=== PATIENT | male | born 2000 | race Caucasian/White ===

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

== ENCOUNTER 2025-04-07 13:15 | Emergency (ER) | payer OTHER, SELFPAY ==
--- OUTSIDE RECORDS SUMMARY | 2023-06-19 13:14 | XMS_ITS | Encounter Summary ---
Author Organization [employer] Address [address] [place] [address] Care Team Providers Care Technical Producer Name Role Phone Unavailable Primary Care Provider Unavailabl e Reason for Visit * Eval and Treat (Routine) - Closed Specialty Diagnoses / Procedures Referred By Herve christiansen Referred To Contact Sports Medicine Diagnoses S/P right knee arthroscopy Rupture of anterior cruciate ligament of right knee, initial encounter Tear of medial meniscus of right knee, current, unspecified tear type, initial encounter Jon Aldana MD [address] [place] [address] Phone: tel: fax: [facility] [address] [address] Phone: tel: fax: Referral ID Status Reason Start Date Expiration Date Visits Requested Visits Authorized [id number] Closed Performing Department to Schedule 06/05/2023 06/04/2024 14 14 Encounter Details Date Type Department Care Team (Late st Contact Info) Description 06/19/2023 12:14 PM [facility] Hospital Encounter [facility] [place], [facility] [address] [address] Social History Tobacco Use Types Packs/Day Years Used Date Smoking Tobacco: Never Smokeless Tobacco: Never Alcohol Use Standard Drinks/Week Comments Yes 0 (1 standard drink = 0.6 oz pur e alcohol) occ. 2 or 3 a month Feeling Safe Answer Date Recorded Are you in a relationship wi th someone who hurts you emotionally and/or physically? 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 Gender Identity Not on file Sexual Orientation Not on file documented as of this encounter Miscellaneous Notes * Therapy Evaluation - Jonathan Garcia, Physical Therapist - 06/19/2023 1:00 PM [facility] SP[facility] MEDICINE [facility] POST - OPERATIVE EVALUATION Patient: Jared Gomez : 2000 Insurer: Payor: [facility] / Plan: [facility] CHOICE [id number] / Product Type: HMO / DATE: 06/19/2023 Referring Physician: Jon Aldana, * VISIT#: authorized visits: 19 Diagnosis: Right knee surgery Date of Surgery: 06/09/23 Procedure(s): Right arthroscopic-assisted anterior cruciate ligament reconstruction with bone- patellar tendon-bone autograft. Contracted School: NA Tier: 3 ; Activity: Weightlifting Start Time: 1300 PATIENT INTENDED TREATMENT OUTCOME / GOALS Patient's stated specific intended outcome(s) for therapy is to return to athletic training education program, weightlifting, and recreational basketball / running without restriction. Short Term: Function related goals: Improved locomotion (33)- Walk without assistance Physiologic Related Goals: Improved swelling (74)- improved circumference measures increased local/isolated range of motion Improved tissue tolerance to stress (78)- Improved local ROM Subjective Related Goals: improved ability to go to school (94)- Improved sustainability of school related skills for the duration of the school day SUBJECTIVE HISTORY: Jared Gomez is a 22 y.o. male referred for evaluation & treatment. 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 Enjoys weightlifting 3 times a week and gets his cardio from basketball and running. SYMPTOM STORY / PATIENT COMPLAINTS: Prior to Surgery: Patient was playing flag football in March 2023, had a noncontact injury to his knee. He felt apop in his knee, and felt something shift, had swelling. MRI confirmed ACL tear. He elected for theabove procedures. Since Surgery: Patient stated they feel good. Patient states they did not take prescribed opiate medication and instead was taking tylenol instead. Patient states their knee feels tight. They are using one crutch around their apartment and two partial weightbearing for longer distances. Patient states feeling soreness on anterior aspect of their right ankle when sitting in knee extension with plantarflexion forlong periods of time. Patient states they have been using lacrosse ball to help with pain in hamstrings and lateral hip. DESCRIPTION OF PAIN/SYMPTOMS: Pain Location: lateral incision sites, hamstrings and lateral aspect of hip Pain rating: current 1/10 best 1/10 worst 7/10 Pain Increases with: full weight bearing Pain Decreases with: sitting full extension with elevation; BARAK wrap compression with ice compress PREVIOUS MEDICAL HISTORY of ORTHOPEDIC INJURY: Left shoulder labrum repair 2016; left and right lateral ankle sprains June 2022 last time; ADDITIONAL RELEVANT MEDICAL HISTORY: Past Medical History: Diagnosis Date Motion sickness Past Surgical History: Procedure Laterality Date HX EXCISION / REPAIR HYDROCELE PEDIATRIC HX SHOULDER ARTHROSCOPY Left 2016 left labral repair HX WISDOM TEETH EXTRACTION IN ARTHRS AIDED ANT CRUCIATE LIGM RPR/AGMNTJ/RCNSTJ Right 06/09/2023 KNEE ANTERIOR CRUCIATE LIGAMENT REPAIR ARTHROSCOPIC performed by Jon Aldana MD at [facility] OR OBSERVATION Supportive Status: ambulates partial weight bearing with axillary crutches Observed: Skin Appearance: surgical incisions clean, closed & healing well without sign of infection Bleeding/drainage: Minimal Bleeding Breathing Pattern: unremarkable Post-operative Affect: Unremarkable OBJECTIVE Tissue Quality Edema/effusion: mild to moderate Location: Knee Circumference: 5cm above superior patellar border: Left 46cm Right 45.5cm Midpatella: Left 38cm Right 41.5cm 10cm below inferior patellar border: Left 39cm Right 40.1cm Muscle Atrophy Location: 21 cm proximal to lateral joint line Left: 55cm Right: 54 Palpation: Pain/tenderness is noted over the following structures: hamstrings, lateral superior incisions Tissue mobility restrictions noted in the following structures: hamstrings, vastus lateralis, tensor fascia latae, gluteus medius Range of Motion Testing: ROM TESTING: Knee Posture LEFT (Active/Passive ROM) RIGHT (Active/Passive ROM) Extension Supine 6?? / 10?? -4?? / 0?? pain Flexion Supine 135?? / 145?? 54?? / 54?? guarding Accessory Joint Motion: Patellar Mobility; Superior- LEFT: excellent RIGHT: excellent Patellar Mobility; Inferior- LEFT: excellent RIGHT: excellent Patellar Mobility; Medial- LEFT: excellent RIGHT: excellent Patellar Mobility; Lateral- LEFT: excellent RIGHT: excellent Strength Testing: Quad contraction is absent Independent ability to perform a straight leg raise: absent Neurological Assessment None were performed at this time. Vascular Assessment None were performed at this time. Breathing Assessment: Breath Hold Test: 41 Seconds PLAN of CARE ASSESSMENT Patient is 10 days post Right knee surgery. Our Assessment identified the following clinical problems following the surgical procedure: Nociception resulting from surgical trauma Swelling> secondary to a surgical procedure resulting in bleeding/fluid within the joint (Effusion) and into the extracellular spaces. Abnormal Tissue Health> Increased Local Swelling/Metabolites Decreased Tissue Mobility Altered Joint Mechanics Limited ROM secondary to Nociceptive input Effusion Tissue Sliding/Gliding Restrictions (vastus lateralis, tensor fascia latae, hamstrings, gluteus medius) Limited Strength Strength limitation secondary to Limited ROM, Missing Shape Competency, Isolated Muscle Weakness, and Muscular Atrophy Based upon the totality of the patients presentation, the Clinical Problem with the highest priority -at this time- is: Swelling> secondary to a surgical procedure resulting in bleeding/fluid within the joint (Effusion) and into the extracellular spaces. PLAN Based upon the patient's presentation today, combined with our objective findings and the referringphysicians recommendation, we are recommending that the patient receive formal, skilled therapy/care at the following interval: 2x/ week for 20-24 weeks Additionally, we discussed the timeframe in which the patient can expect to transition into Phase 2of formal therapy. At this time, we should expect meet all the established requirements and make this transition at roughly the 8 week timeframe. We also are providing the patient with a self-care program with the goal of establishing independent care, that includes the following: Self- administered daily soft tissue work with a foam roll, lacrosse ball, or other implement available to the patient. Individualized breathing protocols which include the most ideal times during the day to perform Activity Status: At this time, based upon the patients clinical presentation, our recommendation is that the patientshould NOT be released to return back to their chosen activity at this time. GOALS For a full list of goals, see the accompanying Treatment Planning Document Topics discussed with patient: Evaluation findings, assessment, recommendations, patient / clinical goals and appropriate expectations. The patient's questions were answered to their verbally indicated satisfaction. At the conclusion the patient stated that they were satisfied with the evaluation & the recommended plan of care. EVALUATION COMPLEXITY PERSONAL FACTORS: none COMORBIDITIES: none Complexity LOW MODERATE HIGH Personal factors/comorbidities [x] 0 [] 1-2 [] 3 Examination of body systems(s) [x] 1-2 [] 3+ [] 4+ Clinical presentation [x] stable [] evolving [] unstable Clinical Decision Making [x] uncomplicated [] Moderate complexity [] Unpredictable presentation Low Evaluation, Duration: 30 minutes, performed by: Jonathan Garcia DPT, ATC TREATMENT TREATMENT ACTIVITIES: Today's Clinical Priority: Establish Care Treatment Start Time: 1330 MANUAL THERAPY Clinician: Jonathan Garcia DPT ATC 20 minutes CLINICAL REASONING: Pain, Restricted Motion, and Lymphatics Lymphatic Drainage: right lower quadrant, right lower extremity Soft Tissue mobilization: popliteus, vastus lateralis Joint Mobilizations: posterior tibial glides THERAPEUTIC EXERCISE Clinician: Jonathan Garcia DPT, ATC 10 minutes CLINICAL REASONING: Restore Strength* Improved Fluid Dynamic Intent: supine: assisted active straight leg raise, assisted active knee extension, assisted active knee flexion ; supported heel raises Total Treatment Time: 30 minutes POST TREATMENT NOTES R RESOURCE AGENT * Treatment Plan - Jonathan Garcia, Physical Therapist - 06/19/2023 1:00 PM [facility]ST [facility]IC[facility] Post -Op Therapy Planning Document Patient: Jared Gomez : 2000 Insurer: Payor: [facility] / Plan: [facility] CHOICE [id number] / Product Type: HMO / Referring Physician: Jon Aldana, * EVAL DATE: 06/19/2023 Diagnosis: Right knee surgery Date of Surgery: 06/09/23 Procedure(s): Right arthroscopic-assisted anterior cruciate ligament reconstruction with bone- patellar tendon-bone autograft. Therapy Transition Plan Based upon the procedure performed, and the information gathered during the evaluation process, therehab team and patient will target a transition into the next stage of therapy (second phase of formal therapy) at 8-10 weeks (08/04 - 08/18/2023) as well as a target for their full return to activity at 20-24 weeks (10/2023). GOALS The following goals were discussed and agreed upon with the patient: Short Term Goals - to be accomplished by the next progress note (3 weeks or visit #6) Function related goals: Improved locomotion (33)- Walk without assistance Physiologic Related Goals: Improved swelling (74)- improved circumference measures increased local/isolated range of motion Improved tissue tolerance to stress (78)- Improved local ROM Subjective Related Goals: improved ability to go to school (94)- Improved sustainability of school related skills for the duration of the school day Intermediate Goals - to be accomplished by the transition into Phase 2 Prone Active Knee flexion > 115 Prone Passive Knee Flexion > 120: Supine (knee to chest) Painfree overpressure knee flexion: Active Knee Extension to 0: Passive Knee Extension equal bilaterally, soft end feel: NO Swelling that limits ROM Negative Ballotment Test Shapes of Movement Standing Set up C1 Back Rack Set up C1 Bottom of Lunge Set up each side C1 Crouching Leyva Set up each side C1 FWB with no visible limp with gait Meets appropriate strength minimums for situation. Ultimate Goals - to be accomplished by their anticipated discharge date (10/27/2023) Function related goals: Improved locomotion (33)- Walk without a limp Jump Run Improved ability to pick items up (34)- glucose and syrup weigher objects for sport Physiologic Related Goals: Improved ability to generate force (86)- Improved force production metrics (leg press, dynamometer, etc.) Subjective Related Goals: Patient's stated specific intended outcome(s) for therapy is to return to athletic training education program, weightlifting, and recreational basketball / running without restriction. Improved ability to run and jump, weight lift for an extended period of time without a return of symptoms. 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 The following obstacle to rehab were identified: work related issues/ability to get time off and school related issues related to scheduling Each of the above identified obstacles will be addressed as needed. R RESOURCE AGENT documented in this encounter Plan of Treatment Scheduled Referrals Name Type Priority Associated Diagnoses Orde r Schedule AMB REFERRAL TO PHYSICAL THERAPY Outpatient Referral Routine S/P right knee arthroscopy Rupture of anterior cruciate ligament of right knee, initial encounter Tear of medial meniscus of right knee, current, unspecified tear type, initial encounter Ordered: 06/05/2023 documented as of this encounter Visit Diagnoses Not on filedocumented in this encounter
--- OUTSIDE RECORDS SUMMARY | 2023-06-21 14:00 | XMS_ITS | Encounter Summary ---
Author Organization [employer] Address [address] [place] [address] Care Team Providers Care Rebeamer Name Role Phone Unavailable Primary Care Provider [...] initial encounter Jon Aldana MD [address] [place] [address] Phone: tel: fax: [facility] [address] [address] Phone: tel: fax: Referral ID Status Reason Start Date Expiration Date Visits Requested Visits Authorized [id number] Closed Performing Department to Schedule 06/05/2023 06/04/2024 14 14 Encounter Details Date Type Department Care Team (Late st Contact Info) Description 06/21/2023 1:00 PM [facility] Hospital Encounter [facility] [address] [address] Social History Tobacco Use Types [...] on file 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 Gender Identity Not on file Sexual Orientation Not on file documented as of this encounter Miscellaneous Notes * Therapy Treatment - Jonathan Garcia, Physical Therapist - 06/21/2023 1:00 PM CST [facility] SP[facility]TS MEDICINE [facility] Daily Treatment Record Patient: Jared Gomez : 2000 Insurer: Payor: [facility] / Plan: [facility] CHOICE [id number] / Product Type: HMO / Referring Physician: Jon Aldana, * DATE: 06/21/2023 VISIT#: 2 / Remaining authorized visits: 18 Diagnosis: Right knee surgery Date of Surgery: 06/09/23 Procedure(s): Right arthroscopic-assisted anterior cruciate ligament reconstruction with bone- patellar tendon-bone autograft. Contracted School: NA Tier: 3 ; Activity: Weightlifting PATIENT INTENDED TREATMENT OUTCOME / GOALS Patient's [...] the duration of the school day SUBJECTIVE Treatment Start Time: 100 Patient presents reporting he isn't having any pain at rest. He has been walking around his apartment without his crutches. Symptom Description: -- OBJECTIVE SHAPES OF MOVEMENT PROFILE: deferred secondary to: Full Shapes Profile in a previous visit Edema/Effusion: moderate Location: right knee Circumference: 5cm above superior patellar border: Left 46cm Right 46.2cm Midpatella: Left 38cm Right 42.9cm 10cm below inferior patellar border: Left 39cm Right 41cm 21cm above lateral joint line: Left 39cm Right 54cm ROM TESTING: Knee Posture LEFT (Active/Passive ROM) RIGHT (Active/Passive ROM) Extension Supine 6?? / 10?? -5?? / 1?? pain Palpation: Pain/tenderness is noted over the following structures: peroneals, poplitius Tissue mobility restrictions noted in the following structures: distal quad into lower leg Scar tissue mobility restrictions noted in the following areas: distal patellar tendon scar STRENGTH TESTING: Quad contraction is present, but very weak TREATMENT INTERVENTIONS I: Based on today's clinical presentation... Today's Clinical Priority: Improve scar tissue Test/Retest: passive knee extension MANUAL THERAPY Clinician: Ramsey Wilburn 25 minutes CLINICAL REASONING: Restricted Motion and Lymphatics Lymphatic Drainage: right lower leg Incision/scar mobilization: all incisions Dermal/Subcutaneous mobilization: lower leg Soft Tissue mobilization: popliteus Test/Retest - Improved ROM and Decreased Pain THERAPEUTIC EXERCISE Clinician: Ramsey Wilburn 5 minutes CLINICAL REASONING: Restore Range of Motion Improved Fluid Dynamic Intent: inverted supine + band assisted knee extension + straight leg raise Patient Handoff Information: The Clinical Priority at the time of handoff: Active knee extension Muscle pumping for swelling Restriction Reminder: None Test/Retest: Active knee extension Beginning Neurodevelopmental Posture/Pattern: Side lying Shape/Strategy Target: Standing: Static and Dynamic Next Appointment Confirmed: Confirmed TREATMENT INTERVENTIONS II NEURO RE-EDUCATION Clinician: Jonathan Garcia DPT, ATC 30 minutes CLINICAL REASONING: Restore Balance*, Restore Coordination*, and Restore Kinesthetic Sense Asymmetrical Supine: sidelying: band assisted active knee Symmetrical, Supported Sitting: Supported V-sitting: band assisted active knee extension, active knee extension + kettlebell heart beats Symmetrical Sitting: Sitting 90/90: active knee flexion <> extension Symmetrical stance: active knee extension, posterior weight shifting POST TREATMENT NOTES Test/Retest - supine active knee extension 0 degrees Total Treatment Time: 60 minutes ION DESIGNER documented in this encounter Plan of Treatment Not on file documented as of this encounter Visit Diagnoses Not on filedocumented in this encounter
--- OUTSIDE RECORDS SUMMARY | 2023-06-26 13:57 | XMS_ITS | Encounter Summary ---
Author Organization [employer] Address [address] [place] [address] Care Team Providers Care Burr Sander Name Role Phone Unavailable Primary Care Provider [...] initial encounter Jon Aldana MD [address] [place] [address] Phone: tel: fax: [facility] [address] [address] Phone: tel: fax: Referral ID Status Reason Start Date Expiration Date Visits Requested Visits Authorized [id number] Closed Performing Department to Schedule 06/05/2023 06/04/2024 14 14 Encounter Details Date Type Department Care Team (Late st Contact Info) Description 06/26/2023 12:57 PM [facility] Hospital Encounter [facility] [address] [address] Social History Tobacco Use Types [...] on file 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 Gender Identity Not on file Sexual Orientation Not on file documented as of this encounter Miscellaneous Notes * Therapy Treatment - Jonathan Garcia, Physical Therapist - 06/26/2023 1:00 PM CST [facility] SPORTS MEDIC[facility] Daily Treatment Record Patient: Jared Gomez : 2000 Insurer: Payor: [facility] / Plan: [facility] CHOICE [id number] / Product Type: HMO / Referring Physician: Jon Aldana, * DATE: 06/26/2023 VISIT#: 3 / Remaining authorized visits: 17 Diagnosis: Right knee surgery Date of Surgery: [...] the school day SUBJECTIVE Treatment Start Time: 1 Patient presents reporting it's feeling the best it has felt in 2 weeks Symptom Description: -- OBJECTIVE SHAPES OF MOVEMENT PROFILE: deferred secondary to: Post-op status Edema/Effusion: mild Location: anterior knee Circumference: 5cm above superior patellar border: Left 45.4cm Right 46.2cm Midpatella: Left 41cm Right 41cm 10cm below inferior patellar border: Left 39cm Right 41cm ROM TESTING: Knee Posture LEFT (Active/Passive ROM) RIGHT (Active/Passive ROM) Extension Supine -?? / -?? -1?? / 1?? Flexion Supine -?? / -?? 106?? / 110?? Flexion Prone -?? / -?? 99?? / 105?? Palpation: Pain/tenderness is noted over the following structures: biceps femoris TREATMENT INTERVENTIONS I: Based on today's clinical presentation... Today's Clinical Priority: Knee ROM Test/Retest: supine active extension MANUAL THERAPY Clinician: Karen Capone 15 minutes CLINICAL REASONING: Pain, Restricted Motion, Loss of Articular (Joint) motion, and Lymphatics Lymphatic Drainage: lower extremity Incision/scar mobilization: all incisions Soft Tissue mobilization: distal quadriceps Test/Retest - Improved ROM THERAPEUTIC EXERCISE Clinician: Karen Capone 15 minutes CLINICAL REASONING: Restore Range of Motion Improved Fluid Dynamic Intent: inverted supine Patient Handoff Information: The Clinical Priority at the time of handoff: Muscle pumping Active extension Restriction Reminder: None Test/Retest: Active extension Beginning Neurodevelopmental Posture/Pattern: Supine- Symmetrical - Pushing Down, Perturbations, Quadruped- Symmetrical - Breathing, Head Control, Shape/Strategy Target: -- Next Appointment Confirmed: Confirmed TREATMENT INTERVENTIONS II THERAPEUTIC EXERCISE Clinician: Jonathan Garcia DPT, ATC 30 minutes CLINICAL REASONING: Restore Strength* Increased Isolated Strength Intent: Supine active assisted straight leg raise; symmetrical stance band resisted knee extension Hypoxic Therapeutic Exercise: 100% LOP: 228mmHg Applied LOP: 70% Cuff location: Inguinal Occlusion Protocol Performed: Rep Template (/15/15/15 with 30 sec rest between) Exercise Performed: Supine active knee extension Sitting 90/90 active knee extension Total Occlusion Time: 12:40 minutes Adverse Affects: No POST TREATMENT NOTES Test/Retest - Supine active knee extension is markedly improved Total Treatment Time: 60 minutes LITE RECOVERY OPERATOR documented in this encounter Plan of Treatment Not on file documented as of this encounter Visit Diagnoses Not on filedocumented in this encounter
--- OUTSIDE RECORDS SUMMARY | 2023-06-28 14:00 | XMS_ITS | Encounter Summary ---
Author Organization [employer] Address [address] [place] [address] Care Team Providers Care Study Assistant Name Role Phone Unavailable Primary Care Provider [...] initial encounter Jon Aldana MD [address] [place] [address] Phone: tel: fax: [facility] [address] [address] Phone: tel: fax: Referral ID Status Reason Start Date Expiration Date Visits Requested Visits Authorized [id number] Closed Performing Department to Schedule 06/05/2023 06/04/2024 14 14 Encounter Details Date Type Department Care Team (Late st Contact Info) Description 06/28/2023 1:00 PM [facility] Hospital Encounter [facility] [address] [address] Social History Tobacco Use Types [...] on file 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 Gender Identity Not on file Sexual Orientation Not on file documented as of this encounter Miscellaneous Notes * Therapy Treatment - Ramsey Wilburn, REY - 06/28/2023 1:00 PM CST [facility] SP[facility]IC[facility] Daily Treatment Record Patient: Jared Gomez : 2000 Insurer: Payor: [facility] / Plan: [facility] [id number] / Product Type: HMO / Referring Physician: Jon Aldana, * DATE: 06/28/2023 VISIT#: 4 / Remaining authorized visits: 16 Diagnosis: Right knee surgery Date of Surgery: [...] the school day SUBJECTIVE Treatment Start Time: 1300 Patient presents reporting no pain at rest. Patient reports using crutches still for distance. Patient reports using crutches half of the time. Patient reported starting to drive and explained that it is going well. Symptom Description: -- OBJECTIVE SHAPES OF MOVEMENT PROFILE: deferred secondary to: Post-op status ROM TESTING: Knee Posture Active ROM (Lt/Rt) Passive ROM (Lt/Rt) Extension Supine -?? / 0?? 2?? / 1?? Flexion Supine 130?? / 115?? -?? / 120?? Flexion Prone 110?? / -?? -?? / 120?? Edema/Effusion: Location: anterior knee Circumference: 5cm above superior patellar border: Left 38 cm Right 44.5 cm Midpatella: Left 41cm Right 41cm 10cm below inferior patellar border: Left 39.5cm Palpation: TREATMENT INTERVENTIONS I: Based on today's clinical presentation... Today's Clinical Priority: Decrease Knee edema/effusion Increase fluid dynamics through active motion Active knee extension conditioning Test/Retest: - MANUAL THERAPY Clinician: Jonathan Garcia DPT, ATC 15 minutes CLINICAL REASONING: Pain and Restricted Motion Incision/scar mobilization: all incisions Soft Tissue mobilization: distal quadricep THERAPEUTIC EXERCISE Clinician: Jonathan Garcia DPT, ATC 15 minutes CLINICAL REASONING: Restore Range of Motion Improved Fluid Dynamic Intent: supine active assisted straight leg raise, static hip flexion at 90 degrees + active ankle pumps ROM Intent: knee range of motion, girth measures Test/Retest - - Patient Handoff Information: The Clinical Priority at the time of handoff: Active knee extension conditioning Active Muscle pumping Restriction Reminder: None Test/Retest: - Beginning Neurodevelopmental Posture/Pattern: Standing: symmetrical, pushing down, weight shifting Shape/Strategy Target: -- Next Appointment Confirmed: Confirmed TREATMENT INTERVENTIONS II NEURO RE-EDUCATION Clinician: Ramsey Wilburn 30 minutes CLINICAL REASONING: Restore Coordination* and Restore Prior Function Symmetrical, Asymmetrical Quadruped: anterior/posterior weight shifts; lateral weight shifts; rightleg extension; transition to pike; transition to bottom of deadlift Half kneeling on left knee + right foot bridge the gap + anterior weight shifts Supported bottom of deadlift + lateral weight shifts POST TREATMENT NOTES Test/Retest - - Total Treatment Time: 60 minutes NICAL INSPECTOR documented in this encounter Plan of Treatment Not on file documented as of this encounter Visit Diagnoses Not on filedocumented in this encounter
--- OUTSIDE RECORDS SUMMARY | 2023-07-03 10:00 | XMS_ITS | Encounter Summary ---
Author Organization [employer] Address [address] [place] [address] Care Team Providers Care Commission Associate Name Role Phone Unavailable Primary Care Provider [...] initial encounter Jon Aldana MD [address] [place] [address] Phone: tel: fax: [facility] [address] [address] Phone: tel: fax: Referral ID Status Reason Start Date Expiration Date Visits Requested Visits Authorized [id number] Closed Performing Department to Schedule 06/05/2023 06/04/2024 14 14 Encounter Details Date Type Department Care Team (Late st Contact Info) Description 07/03/2023 9:00 AM [facility] Hospital Encounter [facility] [address] [address] Social History Tobacco Use Types [...] on file 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 Gender Identity Not on file Sexual Orientation Not on file documented as of this encounter Miscellaneous Notes * Therapy Treatment - Ramsey Wilburn, REY - 07/03/2023 9:00 AM CST [facility] Daily Treatment Record Patient: Jared Gomez : 2000 Insurer: Payor: [facility] / Plan: [facility] CHOICE [id number] / Product Type: HMO / Referring Physician: Jon Aldana, * DATE: 07/03/2023 VISIT#: 5 / Remaining authorized visits: 15 Diagnosis: Right knee surgery Date of Surgery: [...] the school day SUBJECTIVE Treatment Start Time: 0900 Patient presents reporting that his largest complaint is pain in his proximal tibia, weakness in his quad, and some lateral knee pain occasionally at rest. Symptom Description: -- OBJECTIVE SHAPES OF MOVEMENT PROFILE: Critical Shapes Profile Standing Setup Pass Standing Shape Fail Bottom of Deadlift Set up Fail Bottom of Deadlift Shape Fail Biggest, Most Obvious, Commonality: large lateral weight shift, missing knee extension ROM TESTING: Knee Posture LEFT (Active/Passive ROM) RIGHT (Active/Passive ROM) Extension Supine -?? / -?? -1?? / 1?? pain Palpation: Pain/tenderness is noted over the following structures: popliteus Tissue mobility restrictions noted in the following structures: popliteus TREATMENT INTERVENTIONS I: Based on today's clinical presentation... Today's Clinical Priority: Tissue extensibility knee extension Test/Retest: Supine active knee extension, Standing shape MANUAL THERAPY Clinician: Jonathan Garcia DPT, ATC 15 minutes CLINICAL REASONING: Pain and Restricted Motion Soft Tissue mobilization: popliteus NEURO RE-EDUCATION Clinician: Jonathan Garcia DPT, ATC 15 minutes CLINICAL REASONING: Restore Balance*, Restore Coordination*, and Restore Kinesthetic Sense Asymmetrical Quadruped: pushing down, active knee extension, 4 point hover Symmetrical Sitting: Supported v-sitting: band assisted knee extension, active knee extension Asymmetrical Stance: active knee extension, anterior weight shifting, fatbell bicep curls Test/Retest - Standing shape passes, active knee extension 0 degrees Patient Handoff Information: The Clinical Priority at the time of handoff: Active knee extension conditioning Bottom of deadlift set up static Leg press Restriction Reminder: None Test/Retest: Standing shape, bottom of deadlift set up Beginning Neurodevelopmental Posture/Pattern: Vertical Stance- Symmetrical - Unsupported; Pushing Down, Perturbations, Shape/Strategy Target: Bottom of Deadlift: Static Next Appointment Confirmed: Confirmed TREATMENT INTERVENTIONS II NEURO RE-EDUCATION Clinician: Ramsey Wilburn 15 minutes CLINICAL REASONING: Restore Coordination* Asymmetrical Stance: band resisted knee extension Quadruped: piked single leg heel raises THERAPEUTIC ACTIVITY Clinician: Ramsey Wilburn 15 minutes CLINICAL REASONING: Restore Strength~ Squat Progression: Conditioning Focused single leg press (pin 3) 3x5 65# Bottom of deadlift progression POST TREATMENT NOTES Test/Retest - Improved Shape Progression Total Treatment Time: 60 minutes R HELPER documented in this encounter Plan of Treatment Not on file documented as of this encounter Visit Diagnoses Not on filedocumented in this encounter
--- OUTSIDE RECORDS SUMMARY | 2023-07-05 10:00 | XMS_ITS | Encounter Summary ---
Author Organization [employer] Address [address] [place] [address] Care Team Providers Care Assessment Clinician Name Role Phone Unavailable Primary Care Provider [...] initial encounter Jon Aldana MD [address] [place] [address] Phone: tel: fax: [facility] [address] [address] Phone: tel: fax: Referral ID Status Reason Start Date Expiration Date Visits Requested Visits Authorized [id number] Closed Performing Department to Schedule 06/05/2023 06/04/2024 14 14 Encounter Details Date Type Department Care Team (Late st Contact Info) Description 07/05/2023 9:00 AM [facility] Hospital Encounter [facility] [address] [address] Social History Tobacco Use Types [...] on file 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 Gender Identity Not on file Sexual Orientation Not on file documented as of this encounter Progress Notes * Karen Capone - 07/05/2023 9:00 AM CST [facility] SP[facility] MEDICINE [facility] Progress Note Patient: Jared Gomez : 2000 Insurer: Payor: [facility] / Plan: [facility] CHOICE [id number] / Product Type: HMO / Referring Physician: Jon Aldana, * DATE: 07/05/2023 VISIT#: authorized visits: 14 Diagnosis: Right knee surgery Date of Surgery: [...] goals: Improved locomotion (33)- Walk without assistance -MET Physiologic Related Goals: Improved swelling (74)- improved circumference measures MET increased local/isolated range of motion MET Improved tissue tolerance to stress (78)- Improved local ROM MET Subjective Related Goals: improved ability to go to school (94)- Improved sustainability of school related skills for the duration of the school day MET SUBJECTIVE Treatment Start Time: 9:05 Patient presents reporting he is feeling good. He still feels a little numb with kneeling. Biggest complaint is instability while walking down stairs and he has to walk slowly. Symptom Description: Pain Location: incisional OBJECTIVE SHAPES OF MOVEMENT PROFILE: Standing Set up Pass Standing Shape Pass Bottom of Deadlift Set up Fail Bottom of Deadlift Shape Fail Bottom of Lunge SET UP - Left: Fail PAIN (anterior knee ) Right :Fail Crouching Leyva SET UP - Left: Pass Right :Fail ROM TESTING: Knee Posture LEFT (Active/Passive ROM) RIGHT (Active/Passive ROM) Extension Sitting 7?? / 10?? 0?? / 5?? Flexion Prone 120?? / 140?? 120?? / 130 pain ?? Edema/effusion: mild to moderate Location: Knee Circumference: 5cm above superior patellar border: Left 45cm Right 43.5cm Midpatella: Left 37.5cm Right 39.6cm 10cm below inferior patellar border: Left 39.3cm Right 39cm TREATMENT INTERVENTIONS I: Based on today's clinical presentation... Today's Clinical Priority: Progress note objective measures Test/Retest: prone knee flexion MANUAL THERAPY Clinician: Karen Capone 10 minutes CLINICAL REASONING: Pain, Restricted Motion, and Loss of Articular (Joint) motion Incision/scar mobilization: incisions Test/Retest - NEURO RE-EDUCATION Clinician: Karen Capone 25 minutes CLINICAL REASONING: Restore Prior Function Symmetrical, Asymmetrical Kneeling: tall kneeling - weight shifts, 1/2 kneeling - chest press, breathing Neuromuscular Dry Needling Clinician: Karen Capone, REY Patient received verbal education regarding the techniques, indications, contraindications, risks & benefits of functional dry needling. Patient's questions were answered to their verbally indicated satisfaction. Patient gave verbal consent to treat. CLINICAL REASONING: optimization of scar formation Targeted structure(s): main distal incision, medial portal, lateral knee Number of needles used: 5 Needle length: .[id number] Patient Handoff Information: The Clinical Priority at the time of handoff: Knee flexion Lower extremity strength Restriction Reminder: None Test/Retest: Prone passive knee flexion Beginning Neurodevelopmental Posture/Pattern: Quadruped- Symmetrical - Transitioning up, Shape/Strategy Target: Bottom of Deadlift: Static and Dynamic Next Appointment Confirmed: Confirmed TREATMENT INTERVENTIONS II THERAPEUTIC ACTIVITY Clinician: Karen Capone 20 minutes CLINICAL REASONING: Restore Strength~ Deadlift Progression: Static bottom of deadlift static 5 sec holds + breathing Transitioning: Dynamic quadruped <> bottom of deadlift POST TREATMENT NOTES Test/Retest - Improved ROM - passive 140 Total Treatment Time: 55 minutes ATION SUPERVISOR documented in this encounter Plan of Treatment Not on file documented as of this encounter Visit Diagnoses Not on filedocumented in this encounter
--- OUTSIDE RECORDS SUMMARY | 2023-07-10 10:00 | XMS_ITS | Encounter Summary ---
Author Organization [employer] Address [address] [place] [address] Care Team Providers Care Barrel Builder Name Role Phone Unavailable Primary Care Provider [...] initial encounter Jon Aldana MD [address] [place] [address] Phone: tel: fax: [facility] [address] [address] Phone: tel: fax: Referral ID Status Reason Start Date Expiration Date Visits Requested Visits Authorized [id number] Closed Performing Department to Schedule 06/05/2023 06/04/2024 14 14 Encounter Details Date Type Department Care Team (Late st Contact Info) Description 07/10/2023 9:00 AM [facility] Hospital Encounter [facility] [address] [address] Social History Tobacco Use Types [...] on file 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 Gender Identity Not on file Sexual Orientation Not on file documented as of this encounter Miscellaneous Notes * Therapy Treatment - Karen Capone - 07/10/2023 9:00 AM CST [facility] SPORTS MEDICINE [facility] Daily Treatment Record Patient: Jared Gomez : 2000 Insurer: Payor: [facility] / Plan: [facility] CHOICE [id number] / Product Type: HMO / Referring Physician: Jon Aldana, * DATE: 07/10/2023 VISIT#: 7 authorized visits: 13 Diagnosis: Right knee surgery Date of Surgery: 06/09/23 Procedure(s): Right arthroscopic-assisted anterior cruciate ligament reconstruction with bone- patellar tendon-bone autograft. Contracted School: NA Tier: 3 ; Activity: Weightlifting PATIENT INTENDED TREATMENT OUTCOME / GOALS Patient's stated specific intended outcome(s) for therapy is to return to athletic training education program, weightlifting, and recreational basketball / running without restriction. Short Term: Prone Active Knee flexion > 115 Prone [...] gait Meets appropriate strength minimums for situation. SUBJECTIVE Treatment Start Time: 0900 Patient presents reporting that he is not having much pain at all at this point. His largest complaint continues to be lack of strength in his right lower extremity. Symptom Description: -- OBJECTIVE SHAPES OF MOVEMENT PROFILE: Critical Shapes Profile Bottom of Lunge Set up Left: Pass PAIN (right knee pain) Right: - Bottom of Lunge Shape Left: Fail Right: - Biggest, Most Obvious, Commonality: - MOBILITY TESTING: Modified Davin (superficial front/deep front/lateral line): Left: not assessed Right: moderate restriction Palpation: Pain/tenderness is noted over the following structures: rectus femoris Tissue mobility restrictions noted in the following structures: rectus femoris, vastus lateralis TREATMENT INTERVENTIONS I: Based on today's clinical presentation... Today's Clinical Priority: Tissue extensibility combined hip extension / knee flexion Test/Retest: Bottom of lunge set up left MANUAL THERAPY Clinician: Jonathan Garcia DPT, ATC 20 minutes CLINICAL REASONING: Pain and Restricted Motion Soft Tissue mobilization: rectus femoris, vastus lateralis NEURO RE-EDUCATION Clinician: Jonathan Garcia DPZaid, ATC 10 minutes CLINICAL REASONING: Restore Balance*, Restore Coordination*, and Restore Kinesthetic Sense Symmetrical Quadruped: pushing down, 4 point hover, Quadruped <> bottom of deadlift Test/Retest - Bottom of lunge set up passes, significantly improved tissue quality and decreased pain Patient Handoff Information: The Clinical Priority at the time of handoff: Ground <> stance Bottom of deadlift shape competency Right lower extremity force production: deadlift conditioning, single leg press Restriction Reminder: None Test/Retest: - Beginning Neurodevelopmental Posture/Pattern: Quadruped- Symmetrical - Weight Shifting, Shape/Strategy Target: Bottom of Deadlift: Static and Dynamic Next Appointment Confirmed: Confirmed TREATMENT INTERVENTIONS II NEURO RE-EDUCATION Clinician: Karen Capone 10 minutes CLINICAL REASONING: Restore Prior Function Symmetrical Kneeling: tall kneeling + posterior shifts THERAPEUTIC ACTIVITY Clinician: Karen Capone 20 minutes CLINICAL REASONING: Restore Strength~ Squat Progression: Dynamic and Loaded single leg press 4x85#, double leg marching 65# POST TREATMENT NOTES Test/Retest - Improved Shape Progression Total Treatment Time: 60 minutes RT COORDINATOR documented in this encounter Plan of Treatment Not on file documented as of this encounter Visit Diagnoses Not on filedocumented in this encounter
--- OUTSIDE RECORDS SUMMARY | 2023-07-12 10:00 | XMS_ITS | Encounter Summary ---
Author Organization [employer] Address [address] [place] [address] Care Team Providers Care International Manager Name Role Phone Unavailable Primary Care Provider [...] initial encounter Jon Aldana MD [address] [place] [address] Phone: tel: fax: [facility] [address] [address] Phone: tel: fax: Referral ID Status Reason Start Date Expiration Date Visits Requested Visits Authorized [id number] Closed Performing Department to Schedule 06/05/2023 06/04/2024 14 14 Encounter Details Date Type Department Care Team (Late st Contact Info) Description 07/12/2023 9:00 AM [facility] Hospital Encounter 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 Gender Identity Not on file Sexual Orientation Not on file documented as of this encounter Miscellaneous Notes * Therapy Treatment - Jonathan Garcia, Physical Therapist - 07/12/2023 9:00 AM CST [facility]IC[facility] Daily Treatment Record Patient: Jared Gomez : 2000 Insurer: Payor: [facility] / Plan: [facility] CHOICE [id number] / Product Type: HMO / Referring Physician: Jon Aldana, * DATE: 07/12/2023 VISIT#: 8 authorized visits: 12 Diagnosis: Right knee surgery Date of Surgery: [...] Time: 0900 Patient presents reporting that he worked for the first time yesterday and stood for several hours,he did very well with this overall, he notes he did have a small increase in swelling that was managed at home on his own pretty well. Symptom Description: -- OBJECTIVE SHAPES OF [...] extensibility combined hip extension / knee flexion Tissue sliding / gliding of incision Test/Retest: Bottom of lunge set up left MANUAL THERAPY Clinician: Jonathan Garcia DPZaid, ATC 10 minutes CLINICAL REASONING: Pain and Restricted Motion Dermal/Subcutaneous mobilization: modified davin + congregation band application + knee flexion <>extension flossing; prone asymmetrical stance: + congregation band application + knee flexion <> extension flossing NEURO RE-EDUCATION Clinician: Jonathan Garcia DPT, ATC 10 minutes CLINICAL REASONING: Restore Balance*, Restore Coordination*, and Restore Kinesthetic Sense Asymmetrical Kneelin/2 kneeling: TRX supported pushing down, bottom of lunge shape hover statichold;;1/2 kneeling anterior weight shifting THERAPEUTIC EXERCISE Clinician: Jonathan Garcia DPZaid, ATC 10 minutes CLINICAL REASONING: Restore Strength* Increased Isolated Strength Intent: prone kettlebell hamstring curls; prone band resisted knee extension Test/Retest - Bottom of lunge set up significantly improved Patient Handoff Information: The Clinical Priority at the time of handoff: Combined lower extremity strength: leg press Bottom of deadlift competency Restriction Reminder: None Test/Retest: - Beginning Neurodevelopmental Posture/Pattern: - Shape/Strategy Target: Bottom of Deadlift: Competency Focused 3CWS Squat: Loaded and Conditioning Focused Next Appointment Confirmed: Confirmed TREATMENT INTERVENTIONS II THERAPEUTIC ACTIVITY Clinician: Jonathan Garcia DPT, ATC 30 minutes CLINICAL REASONING: Restore Strength~ Deadlift Progression: Static and Dynamic bottom of deadlift set up: static holds Squat Progression: Loaded Single leg press: 85#; 3x8 110# 3x5 POST TREATMENT NOTES Test/Retest - bottom of deadlift competency improving Total Treatment Time: 60 minutes INED PARTS QUALITY INSPECTOR documented in this encounter Plan of Treatment Not on file documented as of this encounter Visit Diagnoses Not on filedocumented in this encounter
--- OUTSIDE RECORDS SUMMARY | 2023-07-19 09:58 | XMS_ITS | Encounter Summary ---
Author Organization [employer] Address [address] [place] [address] Care Team Providers Care Senior Technical Specialist Name Role Phone Unavailable Primary Care Provider [...] initial encounter Jon Aldana MD [address] [place] [address] Phone: tel: fax: [facility] [address] [address] Phone: tel: fax: Referral ID Status Reason Start Date Expiration Date Visits Requested Visits Authorized [id number] Closed Performing Department to Schedule 06/05/2023 06/04/2024 14 14 Encounter Details Date Type Department Care Team (Late st Contact Info) Description 07/19/2023 8:58 AM [facility] Hospital Encounter 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 Gender Identity Not on file Sexual Orientation Not on file documented as of this encounter Miscellaneous Notes * Therapy Treatment - Ramsey Wilburn, ATC - 07/19/2023 9:00 AM CST [facility] Daily Treatment Record Patient: Jared Gomez : 2000 Insurer: Payor: [facility] / Plan: [facility] CHOICE [id number] / Product Type: HMO / Referring Physician: Jon Aldana, * DATE: 07/19/2023 VISIT#: authorized visits: 11 Diagnosis: Right knee surgery Date of Surgery: [...] Term: Prone Active Knee flexion > 115 MET Prone Passive Knee Flexion > 120: MET Supine (knee to chest) Painfree overpressure knee flexion: MET Active Knee Extension to 0: MET Passive Knee Extension equal bilaterally, soft end feel: NO Swelling that limits ROM Negative Ballotment Test Shapes of Movement Standing Set up C1 MET Back Rack Set up C1 MET Bottom of Lunge Set up each side C1 UNMET Crouching Hong Set up each side C1 UNMET FWB with no visible limp with gait Meets appropriate strength minimums for situation. SUBJECTIVE Treatment Start Time: 0900 Patient presents reporting his knee feels stiff this morning from driving here. He has been workingon his home exercises. Symptom Description: -- OBJECTIVE SHAPES OF MOVEMENT PROFILE: Critical Shapes Profile Bottom of Lunge Set up Left: Fail Right: Pass Bottom of Lunge Shape Left: - Right: Pass Crouching Hong Set up Left: Pass Right: Fail Crouching Hong Shape Left: Pass Right: Fail Biggest, Most Obvious, Commonality: poor strength in loaded right knee flexion MOBILITY TESTING: Modified Davin (superficial front/deep front/lateral line): Left: no restriction Right: mild restriction Palpation: Scar tissue mobility restrictions noted in the following areas: all scars TREATMENT INTERVENTIONS I: Based on today's clinical presentation... Today's Clinical Priority: Improve scar tissue mobility Test/Retest: bottom of lunge set up MANUAL THERAPY Clinician: Ramsey Wilburn 15 minutes CLINICAL REASONING: Restricted Motion Incision/scar mobilization: all directions in supported reynold segura THERAPEUTIC EXERCISE Clinician: Ramsey Wilburn 10 minutes CLINICAL REASONING: Restore Range of Motion ROM Intent: anchored modified davin Test/Retest - Improved Shape Progression NEURO RE-EDUCATION Clinician: Ramsey Wilburn 5 minutes CLINICAL REASONING: Restore Coordination* Asymmetrical Kneeling: anterior <> posterior weight shifts Patient Handoff Information: The Clinical Priority at the time of handoff: Asymmetrical stance competency 2+ CWS Restriction Reminder: None Test/Retest: Bottom of lunge set up and crouching hong set up Beginning Neurodevelopmental Posture/Pattern: Kneeling- Asymmetrical - Tall; Weight Shifting, Perturbations, Vertical Stance- Asymmetrical - Unsupported; Perturbations, Shape/Strategy Target: Bottom of Lunge: Static, Dynamic, and Loaded Crouching Hong: Static, Dynamic, and Loaded Next Appointment Confirmed: Confirmed TREATMENT INTERVENTIONS II NEURO RE-EDUCATION Clinician: Ramsey Wilburn 10 minutes CLINICAL REASONING: Restore Coordination* and Restore Prior Function Asymmetrical Kneeling: elevated half kneeling deadlift Asymmetrical Stance: kettlebell passes; static supported crouching hong set up holds THERAPEUTIC ACTIVITY Clinician: Ramsey Wilburn 20 minutes CLINICAL REASONING: Restore Strength~ Deadlift Progression: Conditioning Focused offset deadlift Squat Progression: Loaded single leg press 3x5 85# (pin 2); 1x 5110# POST TREATMENT NOTES Test/Retest - Improved Shape Progression, pass bottom of lunge set up Total Treatment Time: 60 minutes GN DIRECTOR documented in this encounter Plan of Treatment Not on file documented as of this encounter Visit Diagnoses Not on filedocumented in this encounter
--- OUTSIDE RECORDS SUMMARY | 2023-07-21 10:00 | XMS_ITS | Encounter Summary ---
Author Organization [email or web address] Address [address] [place] [address] Care Team Providers Care Rigging Helper Name Role Phone Unavailable Primary Care Provider [...] initial encounter Jon Aldana MD [address] [place] [address] Phone: tel: fax: [facility] [address] [address] Phone: tel: fax: Referral ID Status Reason Start Date Expiration Date Visits Requested Visits Authorized [id number] Closed Performing Department to Schedule 06/05/2023 06/04/2024 14 14 Encounter Details Date Type Department Care Team (Late st Contact Info) Description 07/21/2023 9:[address] 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 Gender Identity Not on file Sexual Orientation Not on file documented as of this encounter Miscellaneous Notes * Therapy Treatment - Ramsey Wilburn, ATC - 07/21/2023 9:00 AM CST [facility] SP[facility] MEDICINE [facility] Daily Treatment Record Patient: Jared Gomez : 2000 Insurer: Payor: [facility] / Plan: [facility] CHOICE [id number] / Product Type: HMO / Referring Physician: Jon Aldana, * DATE: 07/21/2023 VISIT#: authorized visits: 10 Diagnosis: Right knee surgery Date of Surgery: [...] Knee Extension equal bilaterally, soft end feel: - MET NO Swelling that limits ROM - MEt Negative Ballotment Test - MET Shapes of Movement Standing Set up C1 MET Back Rack Set up C1 MET Bottom of Lunge Set up each side C1 MET Crouching Hong Set up each side C1 MET FWB with no visible limp with gait - MET Meets appropriate strength minimums for situation. SUBJECTIVE Treatment Start Time: 0900 Patient presents reporting that his biggest complaint is just stiffness in his knee overall. He still has some sensitivity with kneeling as well in his incisional, anterior knee region. Symptom Description: -- OBJECTIVE SHAPES OF MOVEMENT PROFILE: Critical Shapes Profile Bottom of Lunge Set up Left: Pass (PAIN: right knee) Right: Pass Bottom of Lunge Shape Left: Fail Right: Pass Crouching Hong Set up Left: Pass Right: Pass Crouching Hong Shape Left: Pass Right: Pass Biggest, Most Obvious, Commonality: poor strength in loaded right knee flexion MOBILITY TESTING: Modified Davin (superficial front/deep front/lateral line): Left: no restriction Right: mild restriction Palpation: Scar tissue mobility restrictions noted in the following areas: all scars STRENGTH TESTING: HANDHELD DYNAMOMETER PEAK FORCE PRODUCTION 07/21/2023 Posture / Joint Angle: Prone 45 degrees flexion Muscle Group / Action: Hamstrings Left Right Average Force: 39.50lbs Average Force: 32.10lbs Average Force Deficit (L/R) 18.73% Peak Force: 48.46lbs Peak Force: 41.84lbs Peak Force Deficit (L/R) 13.66% HANDHELD DYNAMOMETER PEAK FORCE PRODUCTION 07/21/2023 Posture / Joint Angle: Prone 45 degrees flexion Muscle Group / Action: Quadriceps Left Right Average Force: 43.50lbs Average Force: 40.10lbs Average Force Deficit (L/R) 7.82% Peak Force: 57.64lbs Peak Force: 53.28lbs Peak Force Deficit (L/R) 7.56% TREATMENT INTERVENTIONS I: Based on today's clinical presentation... Today's Clinical Priority: Improve scar tissue mobility Test/Retest: bottom of lunge set up left MANUAL THERAPY Clinician: Jonathan Garcia DPT, ATC 20 minutes CLINICAL REASONING: Pain Instrument Assisted Soft Tissue Mobilization: incision in modified davin: 1/2 kneeling + anterior weight shift: incision THERAPEUTIC ACTIVITY Clinician: Jonathan Garcia DPT, ATC 10 minutes CLINICAL REASONING: Restore Strength~ Squat Progression: Loaded single leg press Shapes of movement profile Test/Retest - bottom of lunge set up, shape and crouching hong set up and shape all pass Patient Handoff Information: The Clinical Priority at the time of handoff: Combined lower extremity force production Restriction Reminder: None Test/Retest: - Beginning Neurodevelopmental Posture/Pattern: - Shape/Strategy Target: 2CWS Deadlift: Conditioning Focused 3CWS Squat: Conditioning Focused 4CWS Asymmetrical Lower body: Conditioning Focused 5CWS Locomotion: Conditioning Focused Next Appointment Confirmed: Confirmed TREATMENT INTERVENTIONS II THERAPEUTIC EXERCISE Clinician: Ramsey Wilburn 10 minutes CLINICAL REASONING: Restore Strength* Increased Isolated Strength Intent: hand dynamometer for hamstrings and quadriceps THERAPEUTIC ACTIVITY Clinician: Ramsey Wilburn 20 minutes CLINICAL REASONING: Restore Strength~ Deadlift Progression: Loaded lateral deadlift progression Squat Progression: Loaded single leg press 3x6 110# pin 2 POST TREATMENT NOTES Test/Retest - - Total Treatment Time: 60 minutes Patient is leaving for holidays, will test into phase 2 on 07/31/23 LOGY NAVIGATOR documented in this encounter Plan of Treatment Not on file documented as of this encounter Visit Diagnoses Not on filedocumented in this encounter
--- OUTSIDE RECORDS SUMMARY | 2023-07-31 10:30 | XMS_ITS | Encounter Summary ---
Author Organization [employer] Address [address] [place] [address] Care Team Providers Care Claims Associate Name Role Phone Unavailable Primary Care [...] initial encounter Jon Aldana MD [address] [place] [address] Phone: tel: fax: [facility] [address] [address] Phone: tel: fax: Referral ID Status Reason Start Date Expiration Date Visits Requested Visits Authorized [id number] Closed Performing Department to Schedule 06/05/2023 06/04/2024 14 14 Encounter Details Date Type Department Care Team (Late st Contact Info) Description 07/31/2023 9:30 AM [facility] Encounter [facility] [address] [address] Social History Tobacco Use Types [...] on file 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 Gender Identity Not on file Sexual Orientation Not on file documented as of this encounter Miscellaneous Notes * Therapy Progress Note - Ramsey Wilburn REY - 07/31/2023 9:30 AM CST [facility] Sports Medicine [facility] Progress Note Patient: Jared Gomez : 2000 Insurer: Payor: [facility] / Plan: [facility] CHOICE [id number] / Product Type: HMO / DATE: 07/31/2023 Referring Physician: Jon Aldana, * VISIT#: 11 Remaining authorized visits: 9 Diagnosis: Right knee surgery Date of Surgery: 06/09/23 Procedure(s): Right arthroscopic-assisted anterior cruciate ligament reconstruction with bone- patellar tendon-bone autograft. Contracted School: NA Tier: 3 ; Activity: Weightlifting Post-Operative Timeline: 7 weeks, 3 days SUBJECTIVE CURRENT OUTLOOK: Patient states that they are pleased & encouraged by the improvement seen with treatment & home care interventions. They remain optimistic about achieving treatment goals including symptom resolution & return to normal function. Patient notes improvement in: pain, swelling, range of motion / mobility, stability, strength, and level of function Current complaints: weakness, instability, and functional limitation Soreness after standing for a long period- in posterior knee SHORT TERM GOALS Jared Gomez's goal(s) for the next month: be able to do everything at next clinical site- for example standing foe long periods of time, bending down to work on atheltes Observed: Resting Posture: Forward head Visible Scarring/Incisions: closed, nicely healing incisions with good tissue approximation are noted Puckering at most medial scar and distal patellar tendon Breathing Pattern: Nasal breathing strategy OBJECTIVE Range of Motion Testing: ROM TESTING: Knee Posture LEFT (Active/Passive ROM) RIGHT (Active/Passive ROM) Extension Sitting 7?? / -?? 1?? / -?? Flexion Prone 121?? / 143?? 125?? / 144?? Mobility Testing: None were performed at this time Tissue Quality Edema/effusion: trace Location: right knee Circumference: Midpoint of Femur (22cm above lateral femoral condyle): Left 58cm Right 55cm Midpatella: Left 37.8cm Right 39.5cm Tissue Hydration: Pitting - none Location: - Palpation: Pain/tenderness is noted over the following structures: right: tibial tuberosity, psoas; left: SI joint, lumbar erectors; bilateral: rectus femoris, obliques Altered tone (guarding) is noted in the following structures: right: psoas, rectus femoris, hamstrings; left: lumbar erectors; bilateral: quadratus lumborum, obliques, rectus abdominis Tissue Mobility: Location: - - Special Testing: Alex test: Normal, Stable, Solid End-point Anterior drawer test: Normal, Stable, Solid End-point Localized Strength Testing: Manual Muscle Testing: Knee Flexion: Left: 5/5 Right: 4+/5 Knee Extension: Left: 5/5 Right: 4/5 Hip ABDuction: Left: 5/5 Right: 5/5 Hip ADDuction: Left: 5/5 Right: 5/5 HANDHELD DYNAMOMETER PEAK FORCE PRODUCTION 07/21/2023 Posture [...] Force: 53.28lbs Peak Force Deficit (L/R) 7.56% Neurological Assessment None were performed at this time. Vascular Assessment None were performed at this time. Breathing Assessment: Breath Hold Test: 45 Seconds FUNCTIONAL ASSESSMENT Shapes of Movement Profile: Critical Shapes Profile Standing Setup Pass Standing Shape Pass Bottom of Deadlift Set up Pass Bottom of Deadlift Shape Pass Back Rack Set up Pass Back Rack Shape Left: Pass Right: Pass Short Overhead Set up Pass Short Overhead Shape Left: Fail Right: Fail Bottom of Lunge Set up Left: Pass Right: Pass Bottom of Lunge Shape Left: Fail Right: Pass Crouching Leyva Set up Left: Pass Right: Pass Crouching Gordon Shape Left: Pass Right: Fail Biggest, Most Obvious, Commonality: poor strength in right lower leg MOTOR CONTROL LOADED COMPENSATIONS: Deadlift Strategy: slight weight shift Squat Strategy: weight shift to left side, right knee valgus collapse Lunge Strategy: unremarkable DYNAMIC POSTURAL CONTROL: Y-Balance Test: Lower Quarter Anterior Direction Left: 71cm Right: 50cm Difference = 30% Posterior-Medial Direction Left: 107cm Right: 94cm Difference = 12% STRENGTH/POWER TESTING STRENGTH TESTING: Single Leg Press - Left: 170lbs est 1RM; Right: 150lbs est 1RM> Deficit of 12%. Double Leg Press: 170lbs est 1RM. Bodyweight: 185lbs > Deficit of -% MINIMUM STRENGTH REQUIREMENTS (single leg press bodyweight): NOT met, 2% below standards. CLINICAL ASSESSMENT Demonstrates improved: pain levels, tissue quality, mobility, motor control, strength, and functional ability Current problem list: Swelling> secondary to a surgical procedure resulting in bleeding/fluid within the joint (Effusion) and into the extracellular spaces. 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 SETTER PATIENT GOAL RESUME: Desired level of participation in recreational/ fitness/ sport activities essential to their healthand quality of life including: weightlifting, recreational basketball and baseball/softball CLINICAL GOALS- Short term Meet the criteria to begin our Return to Run Progression: to be met between 12 & 14 weeks post-operative Meet the criteria to begin our linear power/deceleration progression: to be met between 12 & 14weeks post-operative Meet the criteria to begin our vertical power/deceleration progression: to be met between 16 & 18 weeks post-operative Meet the criteria to begin our change of direction progression: to be met between 16 & 18 weekspost-operative 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 STRENGTH Develop minimal / adequate strength levels to meet functional demands of the activity identified above. This includes achieving a LSI of 90% or better. DECELERATION Achieve adequate single limb function to meet functional demands of the activity identified above. This includes achieving a LSI of 90% or better. POWER Achieve adequate single limb power to meet functional demands of the activity identified above. This includes achieving a LSI of 90% or better. AGILITY Possess a LSI of 90% or better on the 5-0-5 agility test All of these goals will be met by 24 weeks post-operative. PLAN Based upon the patient's presentation today, combined with our objective findings and the referringphysicians recommendation, we are recommending that the patient receive formal, skilled therapy/care at the following interval: 2x/week until they are 20-24 weeks from their surgery date (per the physicians protocol and recommendation/expectation of care) We also are providing the patient with a self-care program with the goal of establishing independent care, that includes the following: Custom designed strength program based upon what the patient has access to as well as their level of understanding and skill. Activity Status: At this time, based upon the patients clinical presentation, our recommendation is that the patientshould NOT be released to return back to their chosen activity at this time. Our recommendation is to delay any return to unsupervised therapeutic activity until the patient isable to pass our functional test. TREATMENT ACTIVITIES: Today's Clinical Priority: Phase 2 test in Treatment Start Time: 9:30 THERAPEUTIC EXERCISE Clinician: Ramsey Wilburn 20 minutes CLINICAL REASONING: Restore Strength* and Restore Range of Motion ROM Intent: range of motion assessment Increased Isolated Strength Intent: manual muscle testing NEURO RE-EDUCATION Clinician: Ramsey Wilburn 10 minutes CLINICAL REASONING: Restore Balance*, Restore Coordination*, and Restore Prior Function Asymmetrical, Unsupported, Dynamic Stance: Motor Control Progression Y-Balance Progression THERAPEUTIC ACTIVITY Clinician: Ramsey Wilburn 30 minutes CLINICAL REASONING: Restore Mobility and Restore Strength~ Shapes of Movement Profile Deadlift Progression: Loaded symmetrical kettlebell deadlift Squat Progression: Loaded goblet squat, double and single leg press Lunge Progression: Dynamic forward step lunge Total Treatment Time: 60 minutes The patient states that they are satisfied with the updated plan of care. NE DYNAMOMETER TESTER documented in this encounter Plan of Treatment Not on file documented as of this encounter Visit Diagnoses Not on filedocumented in this encounter
--- OUTSIDE RECORDS SUMMARY | 2023-08-03 16:00 | XMS_ITS | Encounter Summary ---
Author Organization [facility] Address 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
--- OUTSIDE RECORDS SUMMARY | 2023-08-08 16:00 | XMS_ITS | Encounter Summary ---
Author Organization [facility] Address [address] [place] [address] Care Team Providers Care Shopper Marketing Manager Name Role Phone Unavailable Primary Care Provider Unavailabl e Encounter Details Date Type Department Care Team (Late st Contact Info) Description 08/08/2023 3:00 PM HELICOPTER PILOT INSTRUCTOR Hospital Encounter [place] [phone] [facility] [address] [place] [address] Social History Tobacco Use Types [...] on file Legal Sex Male 11:27 PM HELICOPTER PILOT INSTRUCTOR Gender Identity Not on file Sexual Orientation Not on file documented as of this encounter Plan of Treatment Not on file documented as of this encounter Visit Diagnoses Not on filedocumented in this encounter
--- OUTSIDE RECORDS SUMMARY | 2023-08-10 16:00 | XMS_ITS | Encounter Summary ---
Author Organization [facility] Address 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
--- OUTSIDE RECORDS SUMMARY | 2023-08-15 16:00 | XMS_ITS | Encounter Summary ---
Author Organization [facility] Address [address] [place] [address] Care Team Providers Care Shoemaker Apprentice Name Role Phone Unavailable Primary Care Provider Unavailabl e Encounter Details Date Type Department Care Team (Late st Contact Info) Description 08/15/2023 3:00 PM SOURCING ASSOCIATE Hospital Encounter [place] [phone] [facility] [address] [place] [address] Social History Tobacco Use Types [...] on file Legal Sex Male 11:27 PM SOURCING ASSOCIATE Gender Identity Not on file Sexual Orientation Not on file documented as of this encounter Plan of Treatment Not on file documented as of this encounter Visit Diagnoses Not on filedocumented in this encounter
--- OUTSIDE RECORDS SUMMARY | 2023-08-17 16:00 | XMS_ITS | Encounter Summary ---
Author Organization [facility] Address 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
--- OUTSIDE RECORDS SUMMARY | 2023-08-22 16:00 | XMS_ITS | Encounter Summary ---
Author Organization [facility] Address 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
--- OUTSIDE RECORDS SUMMARY | 2023-08-24 16:00 | XMS_ITS | Encounter Summary ---
Author Organization [facility] Address [address] [place] [address] Care Team Providers Care Evaluator Name Role Phone Unavailable Primary Care Provider Unavailabl e Encounter Details Date Type Department Care Team (Late st Contact Info) Description 08/24/2023 3:00 PM RATE MANAGER Hospital Encounter [place] [id number] [facility] [address] [place] [address] Social History Tobacco Use Types [...] on file Legal Sex Male 11:27 PM RATE MANAGER Gender Identity Not on file Sexual Orientation Not on file documented as of this encounter Plan of Treatment Not on file documented as of this encounter Visit Diagnoses Not on filedocumented in this encounter
--- OUTSIDE RECORDS SUMMARY | 2023-08-28 14:30 | XMS_ITS | Encounter Summary ---
Author Organization [facility] Address [address] [place] [address] Care Team Providers Care Felling Bucking Supervisor Name Role Phone Unavailable Primary Care Provider [...] initial encounter Jon Aldana MD [address] [place] [address] Phone: tel: fax: [facility] [address] [address] Phone: tel: fax: Referral ID Status Reason Start Date Expiration Date Visits Requested Visits Authorized [id number] Closed Performing Department to Schedule 06/05/2023 06/04/2024 14 14 Encounter Details Date Type Department Care Team (Late st Contact Info) Description 08/28/2023 1:30 PM [facility] Hospital Encounter [facility] [address] [address] Social History Tobacco Use Types [...] on file 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 Gender Identity Not on file Sexual Orientation Not on file documented as of this encounter Miscellaneous Notes * Therapy Progress Note - Ramsey Wilburn, REY - 08/28/2023 1:30 PM CST [facility] Progress Note Patient: Jared Gomez : 2000 Insurer: Payor: [facility] / Plan: [facility] CHOICE [id number] / Product Type: HMO / DATE: 08/28/2023 Referring Physician: Jon Aldana, * VISIT#: [id number] Remaining authorized visits: 8 Diagnosis: Right knee surgery Date of Surgery: 06/09/23 Procedure(s): Right arthroscopic-assisted anterior cruciate ligament reconstruction with bone- patellar tendon-bone autograft. Contracted School: NA Tier: 3 ; Activity: Weightlifting Post-Operative Timeline: 11 weeks, 3 days SUBJECTIVE CURRENT OUTLOOK: Patient states that they are pleased & encouraged by the improvement seen with treatment & home care interventions. They remain optimistic about achieving treatment goals including symptom resolution & return to normal function. Patient notes improvement in: stability, strength, and level of function Current complaints: swelling, weakness, and functional limitation Right sided low back pain started recently; left SI pain/soreness with deadlift SHORT TERM GOALS Jared Gomez's goal(s) for the next month: be able to do everything at next clinical site- for example standing foe long periods of time, bending down to work on atheltes Observed: Resting Posture: Feet ER Visible Scarring/Incisions: closed, nicely healing incisions with good tissue approximation are noted Medial scar and distal patellar tendon dermally restricted Breathing Pattern: Nasal breathing strategy OBJECTIVE Range of Motion Testing: ROM TESTING: Knee Posture LEFT (Active/Passive ROM) RIGHT (Active/Passive ROM) Extension Supine 6?? / -?? 1?? / -?? Flexion Prone 130?? / 134?? 130?? / 143?? ROM TESTING: Hip Posture LEFT (Active/Passive ROM) RIGHT (Active/Passive ROM) Flexion Supine 90?? / 110?? 100?? / 110?? Mobility Testing: PORTER (combined hip flexion/abduction/external rotation): Left: severe restriction Right: severe restriction Tissue Quality Edema/effusion: mild Location: right knee Circumference: Midpoint of Femur (22cm above lateral femoral condyle): Left 58cm Right 55.1cm Midpatella: Left 37.6cm Right 39.5cm Tissue Hydration: Pitting - none Location: - Palpation: Altered tone (guarding) is noted in the following structures: right: medial head of gastrocnemius, thoracic erectors, quadratus lumborum, obliques, rectus abdominis; left: psoas; bilateral: adductors(left > right) Tissue Mobility: Location: - - Special Testing: Alex test: Normal, Stable, Solid End-point Anterior drawer test: Normal, Stable, Solid End-point Localized Strength Testing: Manual Muscle Testing: Knee Flexion: Left: 4+/5 Right: 4+/5 Knee Extension: Left: 5/5 Right: 4/5 Neurological Assessment None were performed at this time. Vascular Assessment None were performed at this time. Breathing Assessment: None Performed at this time FUNCTIONAL ASSESSMENT Shapes of Movement Profile: Critical Shapes Profile Bottom of Lunge Set up Left: Pass Right: Pass Bottom of Lunge Shape Left: Fail Right: Pass Crouching Leyva Set up Left: Pass Right: Pass Crouching Leyva Shape Left: Pass Right: Fail Bottom of Series Profile Bottom of Squat Set up Fail Bottom of Squat Shape Fail Biggest, Most Obvious, Commonality: poor quadriceps strength in right leg MOTOR CONTROL LOADED COMPENSATIONS: Deadlift Strategy: slight lumbar flexion Squat Strategy: feet collapse, lumbar flexion Lunge Strategy: slight valgus collapse on right side DYNAMIC POSTURAL CONTROL: Y-Balance Test: Lower Quarter Anterior Direction Left: 71.5cm Right: 59cm Difference = 17% Posterior-Medial Direction Left: 117cm Right: 100.5cm Difference = 14% Posterior-Lateral Direction Left: 117cm Right: 105cm Difference = 10% STRENGTH/POWER TESTING STRENGTH TESTING: Single Leg Press - Left: 185lbs est 1RM; Right: 185lbs est 1RM> Deficit of 0%. MINIMUM STRENGTH REQUIREMENTS (single leg press bodyweight): HAVE met FUNCTIONAL TESTING: Power production: 5 % difference Double lein Left/2: 80in; Right/2: 76in CLINICAL ASSESSMENT Demonstrates improved: mobility, motor control, strength, and functional ability Current problem list: Abnormal Tissue Health> Decreased Tissue Mobility Inability to generate appropriate stabilization secondary to inability to generate/control weight shifts outside the base of support Strength limitation secondary to Missing Shape Competency, Isolated Muscle Weakness, Combined Muscle Weakness - Lower Body, and Muscular Atrophy Altered movement correlated with Decreased Strength Meets criteria to advance strength & functional progression (check corresponding smartphrase): yes CLINICALLY ORIENTED GOALS 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 PATIENT GOAL RESUME: Desired level of participation in recreational/ fitness/ sport activities essential to their healthand quality of life including: weightlifting, recreational basketball and baseball/softball CLINICAL GOALS- Short term Meet the criteria to begin our Return to Run Progression: to be met between 12 & 14 weeks post-operative MET Meet the criteria to begin our linear power/deceleration progression: to be met between 12 & 14weeks post-operative MET Meet the criteria to begin our vertical power/deceleration progression: to be met between 16 & 18 weeks post-operative Meet the criteria to begin our change of direction progression: to be met between 16 & 18 weekspost-operative CLINICAL GOALS- senior living MOTOR CONTROL Demonstrate a Limb Symmetric Index [...] or other implement available to the patient. Custom designed strength program based upon what [...] TREATMENT ACTIVITIES: Today's Clinical Priority: Phase 2 recheck Treatment Start Time: 1:30 THERAPEUTIC EXERCISE Clinician: Ramsey Wilburn 20 minutes CLINICAL REASONING: Restore Strength* and Restore Range of Motion ROM Intent: range of motion assessment Increased Isolated Strength Intent: manual muscle testing NEURO RE-EDUCATION Clinician: Ramsey Wilburn 10 minutes CLINICAL REASONING: Restore Balance*, Restore Coordination*, and Restore Prior Function Asymmetrical, Unsupported, Dynamic Stance: Motor Control Progression Y-Balance Test THERAPEUTIC ACTIVITY Clinician: Ramsey Wilburn 30 minutes CLINICAL REASONING: Restore Mobility, Restore Strength~ , and Restore Coordination~ Shapes of Movement Profile Deadlift Progression: Loaded 2 kettlebell left, middle, right deadlift Squat Progression: Loaded goblet squat, single leg press Lunge Progression: Dynamic airborne lunge Transitioning: Dynamic Power: double and single Total Treatment Time: 60 minutes The patient states that they are satisfied with the updated plan of care. HIATRIST documented in this encounter Plan of Treatment Not on file documented as of this encounter Visit Diagnoses Not on filedocumented in this encounter
--- OUTSIDE RECORDS SUMMARY | 2023-09-05 16:00 | XMS_ITS | Encounter Summary ---
Author Organization [facility] Address 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
--- OUTSIDE RECORDS SUMMARY | 2023-09-12 16:00 | XMS_ITS | Encounter Summary ---
Author Organization [facility] Address [address] [place] [address] Care Team Providers Care Film Editor Name Role Phone Unavailable Primary Care Provider Unavailabl e Encounter Details Date Type Department Care Team (Late st Contact Info) Description 09/12/2023 3:00 PM RETAIL TEAM MEMBER Hospital Encounter [place] [phone] [facility] [address] [place] [address] Social History Tobacco Use Types [...] on file Legal Sex Male 11:27 PM RETAIL TEAM MEMBER Gender Identity Not on file Sexual Orientation Not on file documented as of this encounter Plan of Treatment Not on file documented as of this encounter Visit Diagnoses Not on filedocumented in this encounter
--- OUTSIDE RECORDS SUMMARY | 2023-09-19 16:00 | XMS_ITS | Encounter Summary ---
Author Organization [facility] Address [address] [place] [address] Care Team Providers Care Production Quality Manager Name Role Phone Unavailable Primary Care Provider Unavailabl e Encounter Details Date Type Department Care Team (Late st Contact Info) Description 09/19/2023 3:00 PM ANALOG IC DESIGN ARCHITECT Hospital Encounter [place] [phone] [facility] [address] [place] [address] Social History Tobacco Use Types [...] on file Legal Sex Male 11:27 PM ANALOG IC DESIGN ARCHITECT Gender Identity Not on file Sexual Orientation Not on file documented as of this encounter Plan of Treatment Not on file documented as of this encounter Visit Diagnoses Not on filedocumented in this encounter
--- OUTSIDE RECORDS SUMMARY | 2023-09-26 16:00 | XMS_ITS | Encounter Summary ---
Author Organization [facility] Address [address] [place] [address] Care Team Providers Care Rand Tacker Name Role Phone Unavailable Primary Care Provider Unavailabl e Encounter Details Date Type Department Care Team (Late st Contact Info) Description 09/26/2023 3:00 PM ASSEMBLY MACHINE OPERATOR Hospital Encounter [place] [phone] [facility] [address] [place] [address] Social History Tobacco Use Types [...] on file Legal Sex Male 11:27 PM ASSEMBLY MACHINE OPERATOR Gender Identity Not on file Sexual Orientation Not on file documented as of this encounter Plan of Treatment Not on file documented as of this encounter Visit Diagnoses Not on filedocumented in this encounter
--- OUTSIDE RECORDS SUMMARY | 2023-10-02 13:30 | XMS_ITS | Encounter Summary ---
Author Organization [facility] Address [address] [place] [address] Care Team Providers Care Retort Pre Cooker Name Role Phone Unavailable Primary Care Provider [...] initial encounter Jon Aldana MD [address] [place] [address] Phone: tel: fax: [facility] [employer] [facility] [address] [address] Phone: tel: fax: Referral ID Status Reason Start Date Expiration Date Visits Requested Visits Authorized [id number] Closed Performing Department to Schedule 06/05/2023 06/04/2024 14 14 Encounter Details Date Type Department Care Team (Late st Contact Info) Description 10/02/2023 1:30 PM CDT Hospital Encounter [facility] [employer] [facility] [address] [address] Social History Tobacco Use Types [...] on file 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 Gender Identity Not on file Sexual Orientation Not on file documented as of this encounter Miscellaneous Notes * Therapy Progress Note - Ramsey WilburnREY - 10/02/2023 1:30 PM CDT [facility] Sports Medicine [facility] Progress Note Patient: Jared Gomez : 2000 Insurer: Payor: [facility] / Plan: [facility] CHOICE [id number] / Product Type: HMO / DATE: 10/02/2023 Referring Physician: Jon Aldana, * VISIT#: [id number] Remaining authorized visits: 7 Diagnosis: Right knee surgery Date of Surgery: 06/09/23 Procedure(s): Right arthroscopic-assisted anterior cruciate ligament reconstruction with bone- patellar tendon-bone autograft. Contracted School: NA Tier: 3 ; Activity: Weightlifting Post-Operative Timeline: 16 weeks, 3 days SUBJECTIVE CURRENT OUTLOOK: Patient states that they are pleased & encouraged by the improvement seen with treatment & home care interventions. They remain optimistic about achieving treatment goals including symptom resolution & return to normal function. Patient notes improvement in: strength and level of function Current complaints: functional limitation SHORT TERM GOALS Jared Gomez's goal(s) for the next month: be able to do everything at next clinical site- for example standing foe long periods of time, bending down to work on atheltes Observed: Resting Posture: Collapsed (Varus) Feet Visible Scarring/Incisions: closed, nicely healing incisions with good tissue approximation are noted Breathing Pattern: Nasal breathing strategy OBJECTIVE Range of Motion Testing: ROM TESTING: Knee Posture LEFT (Active/Passive ROM) RIGHT (Active/Passive ROM) Extension Supine 7?? / -?? 4?? / -?? Flexion Prone 125?? / -?? 130?? / -?? ROM TESTING: Hip Posture LEFT (Active/Passive ROM) RIGHT (Active/Passive ROM) Flexion Supine 108?? / 123?? 113?? / 128?? Mobility Testing: PORTER (combined hip flexion/abduction/external rotation): Left: severe restriction Right: moderate restriction 1/2 kneeling dorsiflexion: Left: 51 degrees Right: 43 degrees Tissue Quality Edema/effusion: did not assess Location: - Circumference: Midpoint of Femur (22cm above lateral femoral condyle): Left 59.4cm Right 56.7cm Tissue Hydration: Pitting - none Location: - Palpation: Altered tone (guarding) is noted in the following structures: left: adductors, rectus abdominis, psoas, lumbar erectors Tissue Mobility: Location: - - Special Testing: Alex test: Normal, Stable, Solid End-point Anterior drawer test: Normal, Stable, Solid End-point Localized Strength Testing: Manual Muscle Testing: Knee Flexion: Left: 5/5 Right: 5/5 Knee Extension: Left: 5/5 Right: 4-/5 Neurological Assessment None were performed at this time. Vascular Assessment None were performed at this time. Breathing Assessment: None Performed at this time FUNCTIONAL ASSESSMENT Shapes of Movement Profile: Critical Shapes Profile Bottom of Lunge Set up Left: Pass Right: Pass Bottom of Lunge Shape Left: Pass Right: Pass Crouching Hong Set up Left: Pass Right: Pass Crouching Hong Shape Left: Pass Right: Pass Bottom of Series Profile Bottom of Squat Set up Fail Bottom of Squat Shape Fail Biggest, Most Obvious, Commonality: increased shaking in bottom of lunge left and crouching hong right MOTOR CONTROL LOADED COMPENSATIONS: Deadlift Strategy: unremarkable Squat Strategy: foot collapse, slight weight shift to left side Lunge Strategy: - DYNAMIC POSTURAL CONTROL: Y-Balance Test: Lower Quarter Anterior Direction Left: 73cm Right: 58cm Difference = 21% Posterior-Medial Direction Left: 115.5cm Right: 107cm Difference = 7.4% Posterior-Lateral Direction Left: 110cm Right: 106cm Difference = 4% STRENGTH/POWER TESTING STRENGTH TESTING: Single Leg Press - Left: 185lbs est 1RM; Right: 200lbs est 1RM> Deficit of +7.5%. MINIMUM STRENGTH REQUIREMENTS (single leg press bodyweight): HAVE met FUNCTIONAL TESTING: Power production: 11 % difference Double lein Left/2: 84in; Right/2: 75in Deceleration: Single Leg Broad Jump- 23 % difference; 2/1 Broad Jump- 24% difference Left/Left: 71in; Right/Right: 55in 2/Left: 87in; 2/Right: 66in Dynamic Excursion: +5 % difference Left: 6.78 s; Right: 6.43s CLINICAL ASSESSMENT Demonstrates improved: strength and functional ability Current problem list: Inability to generate appropriate stabilization secondary to inability to generate/control weight shifts outside the base of support Strength limitation secondary to Isolated Muscle Weakness and Muscular Atrophy Altered movement correlated with Decreased Strength Meets criteria to advance strength & functional progression (check corresponding smartphrase): yes CLINICALLY ORIENTED GOALS SENIOR LIVING PATIENT GOAL RESUME: Desired level of participation [...] met between 16 & 18 weeks post-operative MET Meet the criteria to begin our change of direction progression: to be met between 16 & 18 weekspost-operative MET CLINICAL GOALS- supervisor intermediates MOTOR CONTROL Demonstrate a Limb Symmetric Index [...] clinical presentation, our recommendation is that the patientcan return back to their chosen activity at this time WITH THE FOLLOWING RESTRICTIONS: can continuejogging Our recommendation is to delay any return to unsupervised therapeutic activity until the patient isable to pass our functional test. TREATMENT ACTIVITIES: Today's Clinical Priority: Phase 2 recheck Treatment Start Time: 2:30 THERAPEUTIC EXERCISE Clinician: Ramsey Wilburn 15 minutes CLINICAL REASONING: Restore Strength* and Restore [...] Restore Mobility, Restore Strength~ , and Restore Functional Performance Shapes of Movement Profile Deadlift Progression: Loaded 2 kettlebell left, middle, right Squat Progression: Loaded goblet squat, TRX pistol squat, single leg press Transitioning: Dynamic Power: double and single; Deceleration: double and single Total Treatment Time: 55 minutes The patient states that they are satisfied with the updated plan of care. documented in this encounter Plan of Treatment Not on file documented as of this encounter Visit Diagnoses Not on filedocumented in this encounter
--- OUTSIDE RECORDS SUMMARY | 2023-10-10 15:00 | XMS_ITS | Encounter Summary ---
Author Organization [facility] Address 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
--- OUTSIDE RECORDS SUMMARY | 2023-10-17 15:00 | XMS_ITS | Encounter Summary ---
Author Organization [facility] Address 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
--- OUTSIDE RECORDS SUMMARY | 2023-10-24 15:00 | XMS_ITS | Encounter Summary ---
Author Organization [facility] Address 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
--- OUTSIDE RECORDS SUMMARY | 2023-10-31 15:05 | XMS_ITS | Encounter Summary ---
Author Organization [facility] Address 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
--- OUTSIDE RECORDS SUMMARY | 2023-11-06 14:01 | XMS_ITS | Encounter Summary ---
Author Organization Company Address [address] [place] [address] Care Team Providers Care Dental Laboratory Supervisor Name Role Phone Unavailable Primary Care [...] initial encounter Jon Aldana MD [address] [place] [address] Phone: tel: fax: [facility] [address] [address] Phone: tel: fax: Referral ID Status Reason Start Date Expiration Date Visits Requested Visits Authorized [id number] Closed Performing Department to Schedule 06/05/2023 06/04/2024 14 14 Encounter Details Date Type Department Care Team (Late st Contact Info) Description 11/06/2023 2:01 PM CDT Hospital Encounter [facility] [address] [address] Social History Tobacco Use Types [...] on file 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 Gender Identity Not on file Sexual Orientation Not on file documented as of this encounter Miscellaneous Notes * Therapy Discharge - Ramsey Wilburn, REY - 11/06/2023 2:30 PM CDT [facility] THERAPY DISCHARGE NOTE / FUNCTIONAL TESTING Patient: Jared Gomez : 2000 Insurer: Payor: [facility] / Plan: [facility] CHOICE [id number] / Product Type: HMO / DATE: 11/06/2023 Referring Physician: Jon Aldana, * VISIT#: [id number] Remaining authorized visits: 6 Diagnosis: Right knee surgery Date of Surgery: 06/09/23 Procedure(s): Right arthroscopic-assisted anterior cruciate ligament reconstruction with bone- patellar tendon-bone autograft. Contracted School: NA Tier: 3 ; Activity: Weightlifting Post-Operative Timeline: 21 weeks, 3 days UPDATED PLAN of CARE PLAN Based upon the patient's presentation today, combined with our objective findings and the referringphysicians recommendation, we are recommending that the patient be released from formal, skilled therapy/care. Activity Status: At this time, based upon the patients clinical presentation, our recommendation is that the patientcan return back to their chosen activity at this time with no restrictions; however, they still need to follow-up with their physician and received a full release from the physician to return back tofull participation. All testing fell within established acceptable limits and technique standards to pass. Based on the patient's functional testing performance, and the time that has elapsed from the surgery, we recommend releasing the patient from physical therapy. I spoke with the patient and counseled them on a gradual return back to their chosen activities over the course of 4-6 weeks. We discussed continuing ankle and mobility in order to improve anterior dynamic control. SUBJECTIVE Jared Gomez presents today to determine if they are ready to be released from formal therapy to a home exercise program. They come in today reporting that they have improved since initiating treatment. CURRENT OUTLOOK: Patient states that they are pleased & encouraged by the improvement seen with treatment & home care interventions. They remain optimistic about achieving treatment goals including symptom resolution & return to normal function. Current complaints: pain in ankle when coming out of end range dorsiflexion OBJECTIVE Range of Motion Testing: Knee Posture LEFT (Active/Passive ROM) RIGHT (Active/Passive ROM) Extension Sitting 3?? / -?? 1?? / -?? Flexion Prone 121?? / 140?? 130?? / 145?? Mobility Testing: None were performed at this time Tissue Quality Edema/effusion: trace Location: right knee- joint Circumference: Not measures Tissue Hydration: Pitting - none Location: - Palpation: Altered tone (guarding) is noted in the following structures: gluteus medius, tensor fascia latae Tissue Mobility: Location: - - Special Testing: Alex test: Normal, Stable, Solid End-point Anterior drawer test: Normal, Stable, Solid End-point Localized Strength Testing: Manual Muscle Testing: Knee Flexion: Left: 4+/5 Right: 4/5 Knee Extension: Left: 5/5 Right: 5/5 FUNCTIONAL ASSESSMENT Shapes of Movement Profile: Bottom of Series Profile Bottom of Squat Set up Fail Bottom of Squat Shape Fail Biggest, Most Obvious, Commonality: poor ankle and hip mobility MOTOR CONTROL DYNAMIC POSTURAL CONTROL: Y-Balance Test: Lower Quarter Anterior Direction Left: 71cm Right: 63.5cm Difference = 10.6% Posterior-Medial Direction Left: 116cm Right: 111cm Difference = 3% Posterior-Lateral Direction Left: 114cm Right: 108cm Difference = 5% STRENGTH/POWER TESTING STRENGTH TESTING: LEG PRESS 80%: 160lbs 110%: 220lbs 11/06/2023 Left Right Bilateral Weight 200lbs Weight 200lbs Weight - Reps 1 Reps 1 Reps - 1 RM 200lbs 1 RM 200lbs 1 RM #VALUE! BW 35% BW 35% BW #VALUE! Deficit (L/R) 0% Setup Pin #: 2 Body Weight: 185lbs MINIMUM STRENGTH REQUIREMENTS (single leg press bodyweight): HAVE met FUNCTIONAL TESTING: Power production: 2 % difference Double lein Left/2: 85in; Right/2: 83in Deceleration: Single Leg Broad Jump- 20 % difference; 2/1 Broad Jump- 8% difference Left/Left: 76in; Right/Right: 61in 2/Left: 91in; 2/Right: 84in Dynamic Excursion: 4 % difference Left: 6.28 s; Right: 6/06s Change of direction: 2.5 % difference Left: 2.34 s; Right: 2.4s CLINICAL ASSESSMENT Demonstrates improved: motor control, strength, and functional ability Current problem list: Inability to generate appropriate stabilization secondary to inability to generate/control weight shifts outside the base of support TREATMENT ACTIVITIES: Today's Clinical Priority: Functional Testing Treatment Start Time: 2:00 THERAPEUTIC EXERCISE Clinician: Ramsey Wilburn 15 minutes CLINICAL REASONING: Restore Strength* and Restore Range of Motion ROM Intent: range of motion assessment Increased Isolated Strength Intent: manual muscle testing NEURO RE-EDUCATION Clinician: Ramsey Wilburn 10 minutes CLINICAL REASONING: Restore Balance*, Restore Coordination*, and Restore Prior Function Asymmetrical, Unsupported, Dynamic Stance: Motor Control Progression Y-Balance Test THERAPEUTIC ACTIVITY Clinician: Ramsey Wilburn 35 minutes CLINICAL REASONING: Restore Mobility, Restore Strength~ , and Restore Functional Performance Shapes of Movement Profile Deadlift Progression: Loaded left, middle, right deadlift Squat Progression: Dynamic and Loaded goblet squat, TRX pistol squat, single leg press Transitioning: Dynamic Power: double and single; Deceleration: double and single transition to lateral Total Treatment Time: 60 minutes The patient's questions were answered to their verbally indicated satisfaction. The patient feels that they are: ready to be released from care. documented in this encounter Plan of Treatment Not on file documented as of this encounter Visit Diagnoses Not on filedocumented in this encounter
[2025-04-07 13:24] VITALS: BP 155/93; PULSE 65; RESP 18; TEMP 36.7; O2SAT 100; BMI 28.5
--- OUTSIDE RECORDS SUMMARY | 2025-04-07 13:43 | XMS_ITS | Encounter Summary ---
Author Organization [facility] Address [address] [place] [address] Care Team Providers Care Skin Care Technician Name Role Phone Unavailable Primary Care Provider Unavailabl e Encounter Details Date Type Department Care Team (Late st Contact Info) Description 05/24/2017 Ancillary Orders [facility] Pre-Registration [place] CALL TO MAKE APPOINTMENT ONLY [address] [place] [phone] Linden Bullock MD [address] [facility] [address] [place] [phone] Left shoulder pain Social History Tobacco Use Types Packs/Day Years Used Date Smoking Tobacco: Never Assessed Sex and Gender Information Value Date Recorded Sex Assigned at Not on file Legal Sex Male 11:47 AM CDT Gender Identity Not on file Sexual Orientation Not on file documented as of this encounter Plan of Treatment Not on file documented as of this encounter Results * XR SHOULDER 2+ VW LEFT (05/25/2017 8:43 AM CDT) Anatomical Region Laterality Modality Upper Extremity Computed Radiogr aphy 05/25/2017 8:43 AM CDT Impressions 05/25/2017 10:03 AM CDT IMPRESSION: Please see below. Exam: XR SHOULDER 2+ VW LEFT Date/Time of Exam: 05/25/2017 8:43 AM Reason For Exam: Left shoulder pain. Findings: 0.2 mL ProHance and 5 mL Isovue 300 contrast was injected in the left glenohumeral joint. The images confirm the intra-articular injection of contrast. Please see the MRI of the same day. [id number] Narrative Procedure Note Frances Edmonds MD - 05/25/2017 IMPRESSION: Please see below. Exam: XR SHOULDER 2+ VW LEFT Date/Time of Exam: 05/25/2017 8:43 AM Reason For Exam: Left shoulder pain. Findings: 0.2 mL ProHance and 5 mL Isovue 300 contrast was injected in the left glenohumeral joint. The images confirm the intra-articular injection of contrast. Please see the MRI of the same day. [id number] us Linden Bullock MD DIAGNOSTIC IMAGING ORDERABL ES Final Result documented in this encounter Visit Diagnoses Diagnosis Left shoulder pain Pain in joint, shoulder region Left shoulder pain Pain in joint, shoulder region documented in this encounter
--- OUTSIDE RECORDS SUMMARY | 2025-04-07 13:43 | XMS_ITS | Clinical Summary ---
Author Organization [facility] Address [address] [facility] Attn: Epic Prelude ADT [place] [address] Care Team Providers Care Plate Grainer Apprentice Name Role Phone Unavailable Primary Care Provider Unavailabl e Allergies Active Allergy Reactions Criticality Noted Date Comments Amoxicillin Hives High 05/25/2017 Medications No known medications Active Problems No known active problems Social History Tobacco Use Types Packs/Day Years Used Date Smoking Tobacco: Never Smokeless Tobacco: Never Tobacco Cessation:Counseling Given: Not Answered Alcohol Use Standard Drinks/Week Comments Yes 0 (1 standard drink = 0.6 oz pur e alcohol) occ. 2 or 3 a month Feeling Safe Answer Date Recorded Are you in a relationship wi th someone who hurts you emotionally and/or physically? 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 Gender Identity Not on file Sexual Orientation Not on file Last Filed Vital Signs Vital Sign Reading Time Taken Comments Blood Pressure 110/60 08/24/2023 2:15 PM BUTTON BRADDER Pulse 99 06/09/2023 1:45 PM BUTTON BRADDER Temperature 36.8 C (98.2 F) 06/09/2023 1:45 PM BUTTON BRADDER Respiratory Rate 11 06/09/2023 12:30 PM BUTTON BRADDER Oxygen Saturation 100% 06/09/2023 1:45 PM BUTTON BRADDER Inhaled Oxygen Concentration - - Weight 86.6 kg (191 lb) 08/24/2023 2:15 PM BUTTON BRADDER Height 180.3 cm (5' 11 ) 08/24/2023 2:15 PM BUTTON BRADDER Body Mass Index 26.64 08/24/2023 2:15 PM BUTTON BRADDER Plan of Treatment Health Maintenance Due Date Last Done Comments HPV VACCINES (1 - Male 3-dose series) 2016 DTAP/TDAP/TD VACCINES (1 - Tdap) 2020 HEPATITIS B VACCINES (1 of 3 - 19+ 3-dose series) 06/24 INFLUENZA VACCINE (#1) 2025 Medical Devices Implanted Type Area Livestock Counter Device Identifier Shelf Expiration Date Model / Serial / Lot Screw Bc If 7x20mm Vented Ar-4020c-07 - [id number] Implanted:Qty: 1 on 06/09/2023 by Jon Aldana MD at [facility] Screw Right: Knee [employer] [id number] 12/21/2026 AR-4020C-0 7 / / [id number] Screw Bc If 8x20mm Vented Ar-4020c-08 - [id number] Implanted:Qty: 1 on 06/09/2023 by Jon Aldana MD at [facility] Screw Right: Knee [employer] [id number] 12/21/2026 AR-4020C-0 8 / / [id number] Insurance * Guarantor: Akua Masterson Account Type Relation to Patient Date of Phone Billing Address Personal/Family Self 2000 [address] [place] [address] [facility] CHOICE [id number] [employer]
--- OUTSIDE RECORDS SUMMARY | 2025-04-07 13:43 | XMS_ITS | Encounter Summary ---
Author Organization [facility] Address [address] [place] [address] Care Team Providers Care Rn Clinical Review Name Role Phone Unavailable Primary Care Provider Unavailabl e Reason for Referral * Outpatient Services (Routine) - Closed Specialty Diagnoses / Procedures Referred By Contej t Referred To Contact Diagnoses Left shoulder pain Procedures XR FLUORO NEEDLE PLACEMENT Linden Bullock MD [address] [address] Phone: tel:[phone] fax: [facility] [place] CALL TO MAKE APPOINTMENT ONLY [address] [place] [address] Phone: tel: fax: Referral ID Status Reason Start Date Expiration Date V isits Requested Visits Authorized [id number] Closed [facility] TO SCHEDULE (SGF) 05/18/2017 06/18/2018 1 1 * Outpatient Services (Routine) - Closed Specialty Diagnoses / Procedures Referred By Contac t Referred To Contact Diagnoses Left shoulder pain Procedures MRI ARTHROGRAM SHOULDER LEFT Linden Bullock MD [address] [place] [address] Phone: tel: fax: [facility] Pre-Registration [place] CALL TO MAKE APPOINTMENT ONLY [address] [place] [address] Phone: tel: fax: Referral ID Status Reason Start Date Expiration Date V isits Requested Visits Authorized [id number] Closed [facility] TO SCHEDULE (SGF) 05/18/2017 06/18/2018 1 1 Encounter Details Date Type Department Care Team (Late st Contact Info) Description 05/18/2017 Ancillary Orders [facility] Pre-Registration [place] CALL TO MAKE APPOINTMENT ONLY [address] [place] [phone] Linden Bullock MD [address] [facility] [address] [place] [phone] Left shoulder pain Social History Tobacco Use Types Packs/Day Years Used Date Smoking Tobacco: Never Assessed Sex and Gender Information Value Date Recorded Sex Assigned at Not on file Legal Sex Male 11:47 AM CDT Gender Identity Not on file Sexual Orientation Not on file documented as of this encounter Plan of Treatment Not on file documented as of this encounter Results * MRI ARTHROGRAM SHOULDER LEFT (05/25/2017 9:56 AM CDT) Anatomical Region Laterality Modality Upper Extremity Magnetic Resonan ce 05/25/2017 8:51 AM CDT Impressions 05/25/2017 12:11 PM CDT IMPRESSION: Please see below. Exam: MRI ARTHROGRAM SHOULDER LEFT Date/Time of Exam: 05/25/2017 8:49 AM Reason For Exam: Left shoulder pain. Technique: MRI arthrography performed after intra-articular injection of dilute gadolinium. Contrast: 0.2 mL ProHance and 5 mL Isovue-300 contrast was injected into the left glenohumeral joint. The most striking abnormality is the tear of the posterior labrum. The tear is identified from the 7 o'clock to 11 o'clock position ending just adjacent to the biceps anchor but no definite involvement of the biceps anchor or typical SLAP type tear is identified. The abduction external rotation images demonstrate a very subtle irregularity involving the anterior inferior labrum or glenoid cartilage just adjacent to the labrum on series 3 image 9. It appears this is probably an extension of the tear into the very inferior edge of the labrum also seen on series 7 image 15 at about the 5 o'clock position. Otherwise, the cartilage of the glenoid is preserved. No bony contusion or fracture is identified. The anterior band of the inferior glenohumeral ligament is intact. The long head biceps tendon is identified in the bicipital groove of the humerus. No split or tear of the biceps tendon is otherwise identified. The rotator cuff tendons are intact. There is no muscle atrophy. A physiologic amount of fluid in the subacromial and subdeltoid bursa is noted. The clavicle is high-riding with respect to the acromion by 5 mm on this exam. There is some edema in the distal clavicle and acromion but no significant fluid or edema in the adjacent soft tissues and this appearance may indicate that the patient has had a subacute or old acromioclavicular joint injury. Please correlate clinically. IMPRESSION: 1. Extensive labral tear involving the entire posterior labrum and the anterior inferior labrum as above. No definite SLAP variant. 2. No rotator cuff tear. 3. Abnormal alignment of the acromioclavicular joint without significant soft tissue edema suggestive of an old acromioclavicular joint injury. [id number] Narrative Procedure Note Frances Edmonds MD - 05/25/2017 IMPRESSION: Please see below. Exam: MRI ARTHROGRAM SHOULDER LEFT Date/Time of Exam: 05/25/2017 8:49 AM Reason For Exam: Left shoulder pain. Technique: MRI arthrography performed after intra-articular injection of dilute gadolinium. Contrast: 0.2 mL ProHance and 5 mL Isovue-300 contrast was injected into the left glenohumeral joint. The most striking abnormality is the tear of the posterior labrum. The tear is identified from the 7 o'clock to 11 o'clock position ending just adjacent to the biceps anchor but no definite involvement of the biceps anchor or typical SLAP type tear is identified. The abduction external rotation images demonstrate a very subtle irregularity involving the anterior inferior labrum or glenoid cartilage just adjacent to the labrum on series 3 image 9. It appears this is probably an extension of the tear into the very inferior edge of the labrum also seen on series 7 image 15 at about the 5 o'clock position. Otherwise, the cartilage of the glenoid is preserved. No bony contusion or fracture is identified. The anterior band of the inferior glenohumeral ligament is intact. The long head biceps tendon is identified in the bicipital groove of the humerus. No split or tear of the biceps tendon is otherwise identified. The rotator cuff tendons are intact. There is no muscle atrophy. A physiologic amount of fluid in the subacromial and subdeltoid bursa is noted. The clavicle is high-riding with respect to the acromion by 5 mm on this exam. There is some edema in the distal clavicle and acromion but no significant fluid or edema in the adjacent soft tissues and this appearance may indicate that the patient has had a subacute or old acromioclavicular joint injury. Please correlate clinically. IMPRESSION: 1. Extensive labral tear involving the entire posterior labrum and the anterior inferior labrum as above. No definite SLAP variant. 2. No rotator cuff tear. 3. Abnormal alignment of the acromioclavicular joint without significant soft tissue edema suggestive of an old acromioclavicular joint injury. [id number] us Linden Bullock MD MR ORDERABLES Final Resul t * XR FLUORO NEEDLE PLACEMENT (05/25/2017 8:33 AM CDT) Anatomical Region Laterality Modality Computed Radiogr aphy 05/25/2017 8:42 AM CDT Impressions 05/25/2017 9:24 AM CDT IMPRESSION: Please see below. Exam: XR FLUORO NEEDLE PLACEMENT Date/Time of Exam: 05/25/2017 8:33 AM Reason For Exam: Left shoulder pain. Consent: Following detailed discussion in regards to this procedure as well as potential complications and risks with the patient and the patient's mother, a written consent was obtained from the patient's mother. Description of Procedure: The patient was placed in a supine position with the left upper extremity externally rotated at the side, and fluoroscopy was utilized to select the preferred level and site of injection. The area was marked, prepped, and draped in usual sterile fashion, and local anesthesia was achieved with 1% lidocaine overlying the proposed needle course. Under fluoroscopic guidance, a 20-gauge 3.5 inch spinal needle was guided into the glenohumeral joint, and a small test injection of 1% lidocaine was given to note ease of injection. This was followed with the complete bolus of approximately 12 ml of a combination of Isovue, ProHance, lidocaine, and normal saline with good flow of contrast noted into the joint capsule. The needle was withdrawn, the Betadine cleansed from the skin, and a sterile dressing placed. Routine overhead films were obtained at that time prior to transferring the patient to the MRI department for further imaging studies in stable and comfortable condition, having tolerated the procedure well. Narrative Procedure Note Frances Edmonds MD - 05/25/2017 IMPRESSION: Please see below. Exam: XR FLUORO NEEDLE PLACEMENT Date/Time of Exam: 05/25/2017 8:33 AM Reason For Exam: Left shoulder pain. Consent: Following detailed discussion in regards to this procedure as well as potential complications and risks with the patient and the patient's mother, a written consent was obtained from the patient's mother. Description of Procedure: The patient was placed in a supine position with the left upper extremity externally rotated at the side, and fluoroscopy was utilized to select the preferred level and site of injection. The area was marked, prepped, and draped in usual sterile fashion, and local anesthesia was achieved with 1% lidocaine overlying the proposed needle course. Under fluoroscopic guidance, a 20-gauge 3.5 inch spinal needle was guided into the glenohumeral joint, and a small test injection of 1% lidocaine was given to note ease of injection. This was followed with the complete bolus of approximately 12 ml of a combination of Isovue, ProHance, lidocaine, and normal saline with good flow of contrast noted into the joint capsule. The needle was withdrawn, the Betadine cleansed from the skin, and a sterile dressing placed. Routine overhead films were obtained at that time prior to transferring the patient to the MRI department for further imaging studies in stable and comfortable condition, having tolerated the procedure well. us Linden Bullock MD DIAGNOSTIC IMAGING ORDERABL ES Final Result documented in this encounter Visit Diagnoses Diagnosis Left shoulder pain Pain in joint, shoulder region Left shoulder pain Pain in joint, shoulder region Left shoulder pain Pain in joint, shoulder region documented in this encounter
--- OUTSIDE RECORDS SUMMARY | 2025-04-07 13:43 | XMS_ITS | Clinical Summary ---
Author Organization [facility] Address [address] [place] [address] Phone Care Team Providers Care Laborer Yard Name Role Phone Unavailable Primary Care Provider Unavailabl e Allergies Active Allergy Reactions Criticality Noted Date Comments Amoxicillin Hives High 05/25/2017 Medications No known medications Social History Tobacco Use Types Packs/Day Years Used Date Smoking Tobacco: Never Assessed Sex and Gender Information Value Date Recorded Sex Assigned at Not on file Legal Sex Male 11:47 AM CDT Gender Identity Not on file Sexual Orientation Not on file Plan of Treatment Health Maintenance Due Date Last Done Comments HPV VACCINES (1 - Male 3-dose series) 2016 DTAP/TDAP/TD VACCINES (1 - Tdap) 2020 HEPATITIS B VACCINES (1 of 3 - 19+ 3-dose series) 06/24 INFLUENZA VACCINE (#1) 2025 Insurance [employer]
[2025-04-07 14:14] VITALS: BP 133/71; PULSE 68; RESP 16; O2SAT 100
--- NOTE | 2025-04-07 14:42 | CT_ITS ---
WS: [id number] CT ABDOMEN AND PELVIS NONCONTRAST HISTORY: L sided abd/flank pain, hx kidney stone TECHNIQUE: Imaging performed through the abdomen and pelvis. Coronal and sagittal reformats are submitted. All CT scans at [facility] use at least one of these dose optimization techniques: automated exposure control; mA and/or kV adjustment per patient size (includes targeted exams where dose is matched to clinical indication); or iterative reconstruction. DLP: 721.42 mGy.cm COMPARISON: None available. Lower thorax: Lung bases are clear. Visualized heart is normal. No hiatal hernia. Liver: Normal size liver. No mass or bile duct dilatation. Gallbladder: Normal gallbladder. No pericholecystic fluid or cholelithiasis. No gallbladder wall thickening. Pancreas: Normal size and attenuation. Normal pancreatic duct. No pancreatitis or mass. Spleen: Normal. Adrenal glands: Normal. No mass. Right kidney: Normal size kidney with no mass or hydronephrosis. Left kidney: Mildly enlarged edematous LEFT kidney with perinephric stranding. Mild dilatation of the renal pelvis and entire ureter. Ureter is dilated to the UV junction where there is a 4 mm calcification causing the obstruction. There is an additional 2 mm nonobstructing calcification in the LEFT renal pelvis. Aorta: Normal abdominal aorta, no aneurysm or atherosclerosis. No free fluid, intraperitoneal air or significant lymphadenopathy. GI tract: Normal noncontrast imaging of the stomach, small bowel and colon. No obstruction or wall thickening. No appendicitis. Increased density within the lumen of the appendix is likely appendicoliths. Abdominal wall: Negative. No hernia. Pelvis: Well-distended urinary bladder. No free fluid. No inguinal hernia. Osseous structures: Bilateral pars defects at L3 without anterolisthesis. CT/CT kidney stone [id number] IMPRESSION: 1. Mild LEFT renal enlargement with perinephric stranding and mild hydroureter onephrosis secondary to a 4 mm calcification at the UV junction. 2. Negative RIGHT kidney. 3. No appendicitis. 4. 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
[2025-04-07 15:01] LABS: Hematocrit 43.9 % (37-53); Hemoglobin 15.40 g/dL (11.27-16.99); Mean Corpuscular HGB Conc 35.1 g/dL (30-55); Mean Corpuscular Hemoglobin 30.6 pg (27-33); Mean Corpuscular Volume 87.3 fl (82-101); Nucleated Red Blood Cells % 0 %; Platelet Count 282 10^3/cmm (157-399); Red Blood Count 5.03 10^6/uL (3.85-5.65); White Blood Count 10.69 10^3/uL (3.29-11.43)
[2025-04-07] MEDS: ondansetron 2 mg/ML SDV 2 mL 4 MG IVP (15:01)
[2025-04-07] MEDS: morphine 4 mg/mL SDV 1 mL IVP (15:01)
[2025-04-07 15:04] LABS: Glucose Urine UA Negative (Normal); Nitrate Urine Negative (Negative); Specific Gravity, Urine 1.022 (1.005-1.030)
[2025-04-07 15:11] VITALS: BP 131/62; PULSE 59; RESP 16; O2SAT 100
[2025-04-07 15:17] LABS: Alanine Aminotransferase 46 U/L (0-41); Albumin Level 5.0 g/dL (3.5-5.2); Alkaline Phosphatase 82 U/L (40-130); Anion Gap 19.0 (5-19); Aspartate Amino Transferase 28 U/L (0-40); Blood Urea Nitrogen 16 mg/dL (6-20); Calcium 9.8 mg/dL (8.5-10.5); Carbon Dioxide 22 mmol/L (22-29); Chloride 103 mmol/L (98-107); Creatinine Clr Calc Pharmacy 102.9680; Globulin 3.0 g/dL (1.3-4.6); Glucose 138 mg/dL (65-115); Osmolality Calculated 293 mOsm/kg (285-295); Potassium 4.0 mmol/L (3.5-5.1); Sodium 140 mmol/L (136-145); Total Protein 8.0 g/dL (6.6-8.7)
--- NOTE | 2025-04-07 15:22 | W.ED.BACK ---
HPI - Back Pain/Injury General: Chief Complaint: Back Pain/Injury Stated Complaint: Pos alcantara stones Time Seen by Provider: 04/07/25 14:29 History of Present Illness: 24-year-old male history of a kidney stone passed spontaneously 1 year ago, presenting with onset initially on Monday of 1 hour of left flank pain that subsequently resolved until today when he has had pain all day left flank radiating into the left lower abdomen/groin in the middle of the abdomen, endorses multiple episodes of nausea and vomiting, denies diarrhea, denies fever, denies visible blood in the urine or pain on urination, denies right sided abdominal pain, no falls or trauma, no recent illnesses or infection Related Data Previous Rx's ?Medication ?Instructions ?Recorded azithromycin 500 mg tablet See Rx Instructions PO .COMPLEX #3 05/31/20 tabs ibuprofen 600 mg tablet 600 mg PO Q6H PRN pain (scale 04/07/25 score 4-6) #30 tabs ondansetron 8 mg disintegrating 8 mg PO Q8H PRN nausea and 04/07/25 tablet vomiting 4 days #12 tabs oxycodone-acetaminophen 5 mg-325 1 tab PO Q6H PRN pain 3 days #12 04/07/25 mg tablet tabs Allergies Allergy/AdvReac Type Severity Reaction Status Date / Time amoxicillin Allergy ALGY-Hives Verified 05/31/20 11:09 [facility] ED PFSH: Social History Smoking and tobacco/nicotine status: never used tobacco/nicotine Supplemental [facility] Information: hx of kidney stone reported 1 year ago Physical Exam Const: COMMON NORMALS: no acute distress, patient oriented x3 and healthy appearing HENMT: COMMON NORMALS: normocephalic and atraumatic HEAD & SCALP: normocephalic and atraumatic Eye: COMMON NORMALS: Equal, round and reactive pupils present and EOMs intact bilaterally PUPIL: Yes Equal, round and reactive pupils present Neck/C-Spine: COMMON NORMALS: full ROM and supple Chest: COMMONS NORMALS: normal inspection of the chest and normal palpation of entire chest wall Resp: COMMON NORMALS: normal respiratory effort, No retractions, No use of accessory muscles and clear to auscultation bilaterally AUSCULTATION: clear to auscultation bilaterally Cardio: COMMON NORMALS: regular rate, regular rhythm and No murmurs present (Cardio) RATE: regular rate RHYTHM: regular rhythm GI: COMMON NORMALS: Normal to inspection, nondistended, normoactive bowel sounds present, Soft to palpation and no masses PALPATION: Yes Soft to palpation, Yes Tenderness to palpation present (GI) Details: LLQ and LUQ, No Hernia present and No Pulsatile mass present : BLADDER/KIDNEY EXAM: Yes CVA tenderness on the left Back/Pelvis: GENERAL BACK: Yes CVA tenderness Extremity: COMMON NORMALS: normal to inspection and full ROM Neuro: COMMON NORMALS: patient oriented x3, moves all extremities and no focal motor deficits Psych: COMMON NORMALS: mental status grossly normal, Normal thought process present and cooperative THOUGHT PROCESS: Normal thought process present Skin: COMMON NORMALS: no rashes or lesions noted and no wounds GENERAL SKIN EXAM: no rashes or lesions noted Course Reevaluation(s): Reevaluation #1: Patient with improved symptoms, tolerating p.o., CT showing distal left UVJ stone, creatinine 1.3, no UTI, stable for discharge with trial of medical expulsive therapy. He has tamsulosin at home from a prior kidney stone I did discuss with him the evidence-based medicine suggest that there is no significant difference but that he can take it if he chooses. Given that he has now had 2 suspected kidney stones it is reasonable for him to follow-up with an outpatient neurologist to assess for any modifiable risk factors, I will place a referral to case management to help him arrange a follow-up appointment. I do recommend he follow-up with his PCP for further evaluation. Return to the ED precautions for fever, decreased or absent urine output, progressively worsening pain, recurrent vomiting leading to dehydration or intolerance to p.o. Persistent pain greater than 5 days raising concern for nonpassage of stone. Time: 15:49 Vital Signs: Vital signs: Vital Signs Temperature 98.1 F 04/07/25 13:24 Pulse Rate 59 L 04/07/25 15:11 Respiratory Rate 16 04/07/25 15:11 Blood Pressure 131/62 04/07/25 15:11 Pulse Oximetry 100 04/07/25 15:11 Oxygen Delivery Me thod Room Air 04/07/25 15:11 MDM - Back Pain/Injury Medical Decision Making 24-year-old male history of kidney stone 1 year ago passed spontaneously presenting the emergency department with left-sided flank pain and nausea/vomiting persistent times today, had 1 hour history of similar symptoms on Monday that resolved, no fever, normal hemodynamics on ED triage, tender to palpation to the left side of the abdomen as well as to the left CVA region, clinical picture is most consistent with nephrolithiasis, less likely ascending infection on the left kidney/pyelonephritis, lower concern for acute abdomen/appendicitis/diverticulitis/bowel obstruction, plan for IV fluids, pain control, CT abdomen pelvis without contrast, urinalysis, rule out URSULA, reassess for disposition Differential Diagnosis Likely strain of lumbar region, renal colic and pyelonephritis; Unlikely AAA or discitis (very unlikely acute appendictis, diverticulitis, bowel obstruction) Labs Labs showing no leukocytosis, creatinine borderline 1.3, urinalysis showing positive blood, negative for UTI 04/07/25 14:10 04/07/25 14:10 Radiology Impressions Abdomen/Pelvis CT 04/07/25 14:42 IMPRESSION: 1. Mild LEFT renal enlargement with perinephric stranding and mild hydroureteronephrosis secondary to a 4 mm calcification at the UV junction. 2. Negative RIGHT kidney. 3. No appendicitis. 4. 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 Laboratory Results WBC 10.69 10^3/uL (3.29-11.43) 04/07/25 14:10 RBC 5.03 10^6/uL (3.85-5.65) 04/07/25 14:10 Hgb 15.40 g/dL (11.27-16.99) 04/07/25 14:10 Hct 43.9 % (37-53) 04/07/25 14:10 MCV 87.3 fl (82-101) 04/07/25 14:10 MCH 30.6 pg (27-33) 04/07/25 14:10 MCHC 35.1 g/dL (30-55) 04/07/25 14:10 RDW 11.7 % (12.1-15.1) L 04/07/25 14:10 Plt Count 282 10^3/cmm (157-399) 04/07/25 14:10 MPV 9.9 fL (7.4-10.4) 04/07/25 14:10 Neut % (Auto) 87.1 % 04/07/25 14:10 Lymph % (Auto) 9.0 % 04/07/25 14:10 Josephine % (Auto) 3.3 % 04/07/25 14:10 Eos % (Auto) 0.1 % 04/07/25 14:10 Baso % (Auto) 0.2 % 04/07/25 14:10 Neut # (Auto) 9.32 10^3/uL (1.8-7.7) H 04/07/25 14:10 Lymph # (Auto) 1.0 10^3/uL (0.8-4.8) 04/07/25 14:10 Josephine # (Auto) 0.4 10^3/uL (0.2-0.9) 04/07/25 14:10 Eos # (Auto) 0.0 10^3/uL (0.0-0.8) 04/07/25 14:10 Baso # (Auto) 0.0 10^3/uL (0.0-0.1) 04/07/25 14:10 Nucleated RBC % (auto) 0 % 04/07/25 14:10 Nucleated RBCs # 0.0 /100WBC 04/07/25 14:10 Sodium 140 mmol/L (136-145) 04/07/25 14:10 Potassium 4.0 mmol/L (3.5-5.1) 04/07/25 14:10 Chloride 103 mmol/L (98-107) 04/07/25 14:10 Carbon Dioxide 22 mmol/L (22-29) 04/07/25 14:10 Anion Gap 19.0 (5-19) 04/07/25 14:10 BUN 16 mg/dL (6-20) 04/07/25 14:10 Creatinine 1.3 mg/dL (0.7-1.2) H 04/07/25 14:10 GFR Calculation 68.4 mL/min (90-130) L 04/07/25 14:10 Glucose 138 mg/dL (65-115) H 04/07/25 14:10 Calculated Osmolality 293 mOsm/kg (285-295) 04/07/25 14:10 Calcium 9.8 mg/dL (8.5-10.5) 04/07/25 14:10 Total Bilirubin 1.0 mg/dL (0.15-1.2) 04/07/25 14:10 AST 28 U/L (0-40) 04/07/25 14:10 ALT 46 U/L (0-41) H 04/07/25 14:10 Alkaline Phosphatase 82 U/L (40-130) 04/07/25 14:10 Total Protein 8.0 g/dL (6.6-8.7) 04/07/25 14:10 Albumin 5.0 g/dL (3.5-5.2) 04/07/25 14:10 Globulin 3.0 g/dL (1.3-4.6) 04/07/25 14:10 Urine Color Yellow (Yellow) 04/07/25 14:00 Urine Appearance Clear (CLEAR) 04/07/25 14:00 Urine pH 6.0 (5-7) 04/07/25 14:00 Ur Specific [place] 1.022 (1.005-1.030) 04/07/25 14:00 Urine Protein Negative (Negative) 04/07/25 14:00 Urine Glucose (UA) Negative (Normal) 04/07/25 14:00 Urine Ketones 1+ (Negative) H 04/07/25 14:00 Urine Blood 2+ (Negative) A 04/07/25 14:00 Urine Nitrate Negative (Negative) 04/07/25 14:00 Urine Bilirubin Negative (Negative) 04/07/25 14:00 Urine Urobilinogen 0.2 mg/dL (Negative) 04/07/25 14:00 Ur Leukocyte Esterase Negative (Negative) 04/07/25 14:00 Urine RBC 21-50 /hpf (0-2) H 04/07/25 14:00 Urine WBC 0-5 /hpf (0-5) 04/07/25 14:00 Ur Squamous Epith Cells 0-5 /hpf (0-5) 04/07/25 14:00 Amorphous Sediment Not Reportable 04/07/25 14:00 Urine Bacteria None seen /hpf (NONE) 04/07/25 14:00 Hyaline Casts 0-4 /lpf H 04/07/25 14:00 All radiology interpretation(s) finalized by discharge ED provider radiology interpretation(s): CT abdomen pelvis without contrast independently interpreted by me is positive for a 3.5 mm distal left UVJ stone with moderate upstream ureteral nephrosis and mild hydronephrosis Discharge Plan Discharge Patient Disposition: Home Clinical Impression: Renal colic Condition: Stable Prescriptions: New ibuprofen 600 mg tablet 600 mg PO Q6H PRN (Reason: pain (scale score 4-6)) Qty: 30 0RF ondansetron 8 mg tablet,disintegrating 8 mg PO Q8H PRN (Reason: nausea and vomiting) 4 Days Qty: 12 0RF oxycodone-acetaminophen 5-325 mg tablet 1 tab PO Q6H PRN (Reason: pain) 3 Days Qty: 12 0RF No Action azithromycin 500 mg tablet See Rx Instructions PO .COMPLEX Qty: 3 0RF Rx Instructions: take 500 mg today (day 1), then 250 mg for 4 days (days 2-5) PO Discharge Orders: Discharge ED (Routine); Ordered 04/07/25 Ordered By: Jax Jameson Referrals: Isaac Monge MD [Family Provider, Family Practice] Discharge Diet: Advance as tolerated Patient Instructions: Kidney Stones (ED), Opioid Safety, Pain Management, Patient Portal & [place] Instructions Print Language: [place] Citizen Coding Level of Care Code ED Admissions Consultant for Brett Martinez
[2025-04-07 16:22] VITALS: BP 123/80; PULSE 72; O2SAT 99
--- NOTE | 2025-04-11 05:08 | DCPLANNER ---
Referral sent to [facility]
== END 2025-04-07 16:23 | disposition home or self-care (01) ==
PROVIDERS: Emergency Provider Student in an Organized Health Care Education/Training Program; Family Provider Family Medicine
DX: N23 Unspecified renal colic (principal)
CPT/HCPCS: 74176; 80053; 81001; 85025; 87086; 96374; 96375; 99285; J1885; J2270; J2405; J7120